=== PATIENT | female | born 1960 | race Caucasian/White ===

== ENCOUNTER 2017-04-21 11:53 | Inpatient (IN) | payer MEDICARE ==
[~2017-04-21] VITALS: Ht 162.6 cm; Wt 81.6 kg
[~2017-04-21 11:53] MED LIST: ACYCLOVIR400 MG PO; AMOXICILLIN500 M1 OR; AMOXICILLIN500 MG OR; AMOXICILLIN500 MG PO; ANAPROX DS550 MG OR; ASPIRIN LOW DOS81 MG PO; ASPIRIN325 MG PO; ATENOLOL25 MG OR; ATENOLOL25 MG PO; ATIVAN0.5 MG PO; ATUSS DS OR; AUGMENTIN875 MG PO; BACTRIM DS1 TAB PO; BENAZEPRIL5 M1 OR; BENAZEPRIL5 M1 PO; CETIRIZ/PSE1 TAB PO; CIPRO500 MG OR; COMBIVENT IN; COMBIVENT RESPIMAT IN; CYMBALTA20 MG PO; CYMBALTA30 MG PO; DARVOCET-N 100100 MG OR; DAYPRO600 MG OR; DICLOFENAC75 MG OR; DIGOXIN0.25 MG PO; DILAUDID4 MG OR; DILAUDID8 MG OR; DILAUDID8 MG PO; DULCOLAX10 MG RE; FENOFIBRATE48 MG PO; FLAGYL500 MG OR; FLEXERIL; FLEXERIL OR; FLEXERIL PO; GABAPENTIN300 M2 PO; GLIPIZIDE10 MG PO; GLUCOPHAGE500 MG OR; GLYBURID MCR3 MG OR; GLYBURID MCR3 MG PO; HYDROMORPHON4 MG OR; HYDROMORPHON8 MG PO; HYDROMORPHONE HC8 MG PO; INDOMETHACIN PO; INVOKANA100 MG PO; ISOSORB DIN30 MG OR; KEFLEX500 MG PO; KLOR-CON M2020 MEQ OR; LANTUS SOLOSTAR SC; LANTUS100 MG/ML SC; LASIX 20 MG20 MG/TAB PO; LEVAQUIN750 MG PO; LEVEMIR FL100 UNIT/M SC; LEVEMIR1000 UNITS SC; LIPITOR20 MG PO; LIPITOR40 MG PO; LIPITOR80 MG OR; LISINOPRIL10 MG PO; LOPRESSOR 550 MG/TAB PO; LOPRESSOR25 MG PO; LORTAB 10 OR; LORTAB 5 OR; LORTAB 7.5 OR; LORTAB5 PO; LYRICA50 MG PO; METFORMIN HCL1000 MG PO; METFORMIN1000 MG PO; METFORMIN500 M1 OR; METFORMIN500 MG PO; METFORMIN850 MG OR; METFORMIN850 MG PO; METOPROL TAR25 MG PO; MICRONASE5 MG PO; NAPROSYN500 MG OR; NEURONTIN300 MG OR; NEXIUM40 M1 OR; NEXIUM40 M1 PO; NEXIUM40 MG PO; NITREK0.4 MG/HR TD; NOVOLIN 70/30 SC; NOVOLOG100 IU/1 M SC; OPANA ER (CRUSH10 MG PO; OPANA10 MG PO; ORPHENADRINE100 MG PO; OXYCONTIN10 MG PO; PAROXETINE20 MG PO; PAXIL; PAXIL30 MG PO; PENICILLN VK500 MG OR; PERIDEX0.12 % MT; PHENTERMINE37.5 M1 OR; PLAVIX75 MG PO; POT CHLORIDE20 ME3 OR; POTASSIUM CHLO10 MEQ PO; PRILOSEC20 MG/CAP PO; PROAIR HFA IN; RANEXA PO; RESVERATROL PO; ROBITUSSIN AC10 ML PO; SIMVASTATIN40 MG PO; SOMA350 MG OR; SOMA350 MG PO; TRAMADOL HCL50 MG PO; TRIAM/HCTZ1 CAP OR; TRICOR145 MG OR; TYLENOL325 MG PO; ULTRAM50 M1 OR; ULTRAM50 M1 PO; ULTRAM50 MG OR; VALIUM5 MG PO; VENTOLIN HFA IN; VERAPAMIL120 M1 OR; VITAMIN C1000 MG PO; XANAX0.25 MG PO; XANAX0.5 MG PO; ZITHROMAX250 MG PO; ZITHROMAX500 MG OR; ZOCOR20 MG PO; ZPAK OR; ZPAK PO; [UNRECOGNIZED DRUG - CODE] OR
[2017-04-21 12:37] VITALS: BP 102/69
[2017-04-21 12:48] LABS: HEMATOCRIT 42.2 % (37.0-47.0); HEMOGLOBIN 14.2 g/dl (12.0-16.0); IMMATURE GRANULOCYTES 0.3 % (0.0-1.0); MEAN CELL VOLUME 83.2 fL CALC (80.0-100.0); MEAN CORPUSCULAR HGB CONC 33.6 g/L CALC (32.0-36.0); NEUT# 4.86 thou/uL (2.00-7.15); RED BLOOD COUNT 5.07 mill/uL (4.20-5.60); RED CELL DISTRI WIDTH 12.9 % (11.5-15.5)
[2017-04-21 13:22] LABS: ANION GAP 14 (6-22 (CALC)); BUN 9 mg/dL (7-17); BUN/CREATININE RATIO 14 (12-20 (CALC)); CALCIUM 9.7 mg/dL (8.4-10.2); CARBON DIOXIDE 31 mmol/l (22-30); CHLORIDE 96 mmol/l (95-108); CREATININE 0.7 mg/dL (0.5-1.0); GFR > 60 ML/MIN (>=60 (CALC)); GFR FOR AFR.AMER. > 60 ML/MIN (>=60 (CALC)); GLUCOSE 179 mg/dL (65-105); POTASSIUM 4.1 mmol/l (3.5-5.1); SODIUM 138 mmol/l (137-146)
[2017-04-21 15:50] VITALS: BP 112/70
[2017-04-21 16:01] LABS: URINE BILIRUBIN - DIPSTICK NEGATIVE (NEGATIVE); URINE BLOOD DIPSTICK NEGATIVE (NEGATIVE); URINE CLARITY CLEAR; URINE COLOR YELLOW; URINE GLUCOSE - DIPSTICK NEGATIVE (NEGATIVE); URINE KETONE NEGATIVE (NEGATIVE); URINE LEUK ESTERASE TRACE (Negative); URINE NITRITE - DIPSTICK NEGATIVE (Negative); URINE PROTEIN - DIPSTICK NEGATIVE (NEG-TRACE); URINE UROBILINOGEN - DIPSTICK 0.2 E.U./dL (0.2)
[2017-04-21 18:45] VITALS: BP 128/79
== END 2017-04-21 21:26 | disposition left against medical advice (07) | DRG 392 ==
LOC: MS2 11:53
PROVIDERS: ADMIT Internal Medicine Geriatric Medicine; ATTEND Internal Medicine Geriatric Medicine
DX: R10.9 Unspecified abdominal pain (principal); E11.42 Type 2 diabetes mellitus with diabetic polyneuropathy; E11.51 Type 2 diabetes mellitus with diabetic peripheral angiopathy without gangrene; E86.0 Dehydration; F19.20 Other psychoactive substance dependence, uncomplicated; E11.65 Type 2 diabetes mellitus with hyperglycemia; I48.91 Unspecified atrial fibrillation; R11.2 Nausea with vomiting, unspecified; R19.7 Diarrhea, unspecified; M47.816 Spondylosis without myelopathy or radiculopathy, lumbar region; J44.9 Chronic obstructive pulmonary disease, unspecified; I25.10 Atherosclerotic heart disease of native coronary artery without angina pectoris; Z95.1 Presence of aortocoronary bypass graft

== ENCOUNTER 2017-08-16 11:09 | Emergency (ER) | payer OTHER, MEDICARE, MEDICAID ==
[~2017-08-16] VITALS: Ht 162.6 cm; Wt 85.0 kg
[2017-08-16] MEDS ORDERED: NEURONTIN300 MG PO (12:03)
[2017-08-16] MEDS ORDERED: EC ASPIRIN325 MG PO (12:04)
[2017-08-16] MEDS ORDERED: NITROSTAT0.4 MG SL (12:05)
[2017-08-16 12:08] LABS: HEMOGLOBIN 14.7 g/dl (12.0-16.0); IMMATURE GRANULOCYTES 0.6 % (0.0-1.0); MEAN CORPUSCULAR HGB 27.7 pG CALC (26.0-32.0); MEAN CORPUSCULAR HGB CONC 33.4 g/L CALC (32.0-36.0); NEUT# 8.46 thou/uL (2.00-7.15); RED BLOOD COUNT 5.3 mill/uL (4.20-5.60); RED CELL DISTRI WIDTH 13.2 % (11.5-15.5)
[2017-08-16 12:32] LABS: ANION GAP 15 (6-22 (CALC)); BUN 11 mg/dL (7-17); BUN/CREATININE RATIO 15 (12-20 (CALC)); CALCIUM 9.7 mg/dL (8.4-10.2); CARBON DIOXIDE 28 mmol/l (22-30); CHLORIDE 104 mmol/l (95-108); CREATININE 0.7 mg/dL (0.5-1.0); GFR > 60 ML/MIN (>=60 (CALC)); GFR FOR AFR.AMER. > 60 ML/MIN (>=60 (CALC)); GLUCOSE 170 mg/dL (65-105); POTASSIUM 4.4 mmol/l (3.5-5.1); SODIUM 143 mmol/l (137-146)
[2017-08-16 17:09] VITALS: BP 110/66
== END 2017-08-16 17:26 | disposition home or self-care (01) | DRG 552 ==
LOC: ED 11:09
PROVIDERS: Family Medicine
DX: S13.161A Dislocation of C5/C6 cervical vertebrae, initial encounter (principal); E11.9 Type 2 diabetes mellitus without complications; S16.1XXA Strain of muscle, fascia and tendon at neck level, initial encounter; R07.89 Other chest pain; G89.29 Other chronic pain; R91.1 Solitary pulmonary nodule; E78.5 Hyperlipidemia, unspecified; I10 Essential (primary) hypertension; M54.9 Dorsalgia, unspecified; I25.10 Atherosclerotic heart disease of native coronary artery without angina pectoris; I25.2 Old myocardial infarction; V43.54XA Car driver injured in collision with van in traffic accident, initial encounter; Z95.1 Presence of aortocoronary bypass graft

== ENCOUNTER 2018-05-19 22:25 | Emergency (ER) | payer MEDICARE, MEDICAID ==
[~2018-05-19] VITALS: Ht 162.6 cm; Wt 84.2 kg
[~2018-05-19 22:25] MED LIST changes: +EC ASPIRIN325 MG PO; +NEURONTIN300 MG PO; +NITROSTAT0.4 MG SL
[2018-05-19 23:28] LABS: HEMOGLOBIN 14.8 g/dl (12.0-16.0); IMMATURE GRANULOCYTES 0.2 % (0.0-5.0); MEAN CELL VOLUME 81.9 fL CALC (80.0-100.0); MEAN CORPUSCULAR HGB 27.6 pG CALC (26.0-32.0); MEAN CORPUSCULAR HGB CONC 33.6 g/L CALC (32.0-36.0); NEUT# 4.05 thou/uL (2.00-7.15); RED BLOOD COUNT 5.37 mill/uL (4.20-5.60); RED CELL DISTRI WIDTH 13.8 % (11.5-15.5)
[2018-05-19 23:29] LABS: URINE BILIRUBIN - DIPSTICK NEGATIVE (NEGATIVE); URINE BLOOD DIPSTICK NEGATIVE (NEGATIVE); URINE COLOR YELLOW; URINE GLUCOSE - DIPSTICK >=1000 mg/dL (NEGATIVE); URINE KETONE NEGATIVE (NEGATIVE); URINE LEUK ESTERASE NEGATIVE (NEGATIVE); URINE NITRITE - DIPSTICK NEGATIVE (Negative); URINE PH 7.5 (4.5-8.0); URINE PROTEIN - DIPSTICK NEGATIVE (NEG-TRACE)
[2018-05-19 23:36] LABS: ALBUMIN 4.1 g/dL (3.2-5.0); ALKALINE PHOSPHATASE 89 u/l (38-126); ANION GAP 15 (6-22 (CALC)); BILIRUBIN, TOTAL 0.4 mg/dL (0.0-1.4); BUN 6 mg/dL (7-17); BUN/CREATININE RATIO 9 (12-20 (CALC)); CARBON DIOXIDE 31 mmol/l (22-30); CHLORIDE 98 mmol/l (95-108); CREATININE 0.7 mg/dL (0.5-1.0); GFR > 60 ML/MIN (>=60 (CALC)); GFR FOR AFR.AMER. > 60 ML/MIN (>=60 (CALC)); POTASSIUM 3.9 mmol/l (3.5-5.1); SGOT/AST 17 u/l (14-36); SGPT/ALT 33 u/l (9-52); SODIUM 140 mmol/l (137-146); TOTAL PROTEIN 7.4 g/dL (6.3-8.2)
[2018-05-19 23:39] LABS: URINE CLARITY CLEAR
[2018-05-19 23:45] LABS: BARBITURATES NEGATIVE (NEGATIVE); COCAINE NEGATIVE (NEGATIVE); METHADONE NEGATIVE (NEGATIVE); OXCYCODONE NEGATIVE (NEGATIVE); TETRAHYDROCANNABIONOL NEGATIVE (NEGATIVE); TRICYLIC ANTIDEPRESSANTS NEGATIVE (NEGATIVE)
[2018-05-20 00:58] VITALS: BP 142/80
== END 2018-05-20 01:00 | disposition short-term general hospital (02) ==
LOC: ED 22:25
PROVIDERS: Emergency Medicine
DX: H57.04 Mydriasis (principal); I10 Essential (primary) hypertension; R51 Headache; E11.9 Type 2 diabetes mellitus without complications; F17.290 Nicotine dependence, other tobacco product, uncomplicated; Z91.14 Patient's other noncompliance with medication regimen; Z95.1 Presence of aortocoronary bypass graft

== ENCOUNTER 2019-02-26 23:23 | Emergency (ER) | payer MEDICARE, MEDICAID ==
[~2019-02-26] VITALS: Ht 162.6 cm; Wt 70.0 kg
[2019-02-26] MEDS ORDERED: ZETIA10 MG PO (23:37)
[2019-02-26] MEDS ORDERED: LYRICA50 MG PO (23:38)
[2019-02-26] MEDS ORDERED: LISINOPRIL5 MG PO (23:38)
[2019-02-27] MEDS ORDERED: AUGMENTIN875TAB PO (00:36)
[2019-02-27 00:51] VITALS: BP 155/87
== END 2019-02-27 01:00 | disposition home or self-care (01) ==
LOC: ED 23:23
DX: T25.231A Burn of second degree of right toe(s) (nail), initial encounter (principal); E11.9 Type 2 diabetes mellitus without complications; F17.290 Nicotine dependence, other tobacco product, uncomplicated; X19.XXXA Contact with other heat and hot substances, initial encounter; Y92.009 Unspecified place in unspecified non-institutional (private) residence as the place of occurrence of the external cause

== ENCOUNTER 2019-03-27 19:34 | Observation (INO) | payer MEDICARE, MEDICAID ==
[~2019-03-27] VITALS: Ht 162.6 cm; Wt 81.0 kg
[~2019-03-27 19:34] MED LIST changes: +AUGMENTIN875TAB PO; +LISINOPRIL5 MG PO; +ZETIA10 MG PO
[2019-03-27 20:03] LABS: HEMATOCRIT 46.8 % (37.0-47.0); HEMOGLOBIN 15.6 g/dl (12.0-16.0); IMMATURE GRANULOCYTES 0.2 % (0.0-5.0); MEAN CELL VOLUME 81.7 fL CALC (80.0-100.0); MEAN CORPUSCULAR HGB 27.2 pG CALC (26.0-32.0); MEAN CORPUSCULAR HGB CONC 33.3 g/L CALC (32.0-36.0); RED BLOOD COUNT 5.73 mill/uL (4.20-5.60)
--- NOTE | 2019-03-27 20:11 | NUR ---
PT ARRIVES TO ROOM, NOW WITH EKG DONE, IV ESTABLISHED, BLOOD DRAWN, SEEN BY EDP, MEDS PROVIDED ORDERED. PT AMBULATORY TO BR.
[2019-03-27] MEDS ORDERED: NOVOLIN 70/30 SC (20:15)
[2019-03-27] MEDS ORDERED: CRESTOR40 MG PO (20:17)
[2019-03-27] MEDS ORDERED: OXYCONTIN10 MG PO (20:18)
[2019-03-27] MEDS ORDERED: TIZANIDINE2 MG PO (20:19)
[2019-03-27 20:21] LABS: URINE BILIRUBIN - DIPSTICK NEGATIVE (NEGATIVE); URINE BLOOD DIPSTICK NEGATIVE (NEGATIVE); URINE COLOR YELLOW; URINE GLUCOSE - DIPSTICK >=1000 mg/dL (NEGATIVE); URINE KETONE NEGATIVE (NEGATIVE); URINE LEUK ESTERASE NEGATIVE (NEGATIVE); URINE NITRITE - DIPSTICK NEGATIVE (Negative); URINE PH 6.5 (4.5-8.0); URINE PROTEIN - DIPSTICK NEGATIVE (NEG-TRACE); URINE SPECIFIC GRAVITY <=1.005
[2019-03-27 20:22] LABS: ALBUMIN 4.3 g/dL (3.2-5.0); ALKALINE PHOSPHATASE 77 u/l (38-126); ANION GAP 17 (6-22 (CALC)); BILIRUBIN, TOTAL 0.7 mg/dL (0.0-1.4); BUN 8 mg/dL (7-17); BUN/CREATININE RATIO 13 (12-20 (CALC)); CARBON DIOXIDE 29 mmol/l (22-30); CHLORIDE 95 mmol/l (95-108); CREATININE 0.6 mg/dL (0.5-1.0); GFR > 60 ML/MIN (>=60 (CALC)); GFR FOR AFR.AMER. > 60 ML/MIN (>=60 (CALC)); LIPASE 95 u/l (23-300); POTASSIUM 3.8 mmol/l (3.5-5.1); SGOT/AST 34 u/l (14-36); SODIUM 138 mmol/l (137-146); TOTAL PROTEIN 7.4 g/dL (6.3-8.2)
[2019-03-27 20:27] LABS: AMYLASE < 30 u/l (30-110)
[2019-03-27 20:27] LABS: BARBITURATES NEGATIVE (NEGATIVE); COCAINE NEGATIVE (NEGATIVE); METHADONE NEGATIVE (NEGATIVE); OXCYCODONE NEGATIVE (NEGATIVE); TETRAHYDROCANNABIONOL NEGATIVE (NEGATIVE); TRICYLIC ANTIDEPRESSANTS NEGATIVE (NEGATIVE)
[2019-03-27 20:34] LABS: MYOGLOBIN 25 ng/mL (0 - 62)
[2019-03-27 21:20] VITALS: BP 162/82
--- NOTE | 2019-03-27 21:20 | NUR ---
PT ARRIVED TO MS UNIT VIA STRETCHER ACCOMPANIED BY ED NURSE. PT APPEARS TO BE IN STABLE CONDITION. PT IS TALKING ON CELL PHONE WHILE BEING ASSISTED TO THE BED. AIDE IN TO OBTAIN V/S, WEIGHT AND ORIENT PT TO ROOM, BED, CALL SYSTEM, LIGHTS AND TV. CALL LIGHT IS NEXT TO PT AND BED IN LOWEST POSITION AT THIS TIME.
--- NOTE | 2019-03-27 21:28 | NUR ---
REPORT CALLED TO JACKSON MUKHERJEE TAKEN TO ROOM 273 WITHOUT INCIDENT.
[2019-03-27 21:45] VITALS: BP 148/87
--- NOTE | 2019-03-27 22:00 | NUR ---
PT IN TO SEE PT, PT C/O HEADACHE. NITRO PATCH IN PLACE AND POC DISCUSSED W/PT. WILL FOLLOW-UP WHEN ORDERS BECOME AVAILABLE.
[2019-03-28] VITALS (7 sets, daily range): BP systolic 99–147; BP diastolic 55–82
--- NOTE | 2019-03-28 00:15 | NUR ---
FUEL OIL TRUCK DRIVER CALLED RESPIRATORY FOR EKG ORDERED BY PHYSICIAN.
--- NOTE | 2019-03-28 00:30 | NUR ---
UPON CHART CHECK, TEAM CDL DRIVER NOTICED ORDER FOR EKG FROM TIME PRIOR TO FLOOR BEING ON THE FLOOR. ED OBTAINED 1X EKG, ORDERS FOR SECOND WERE PLACED FOR FLOOR PRIOR TO PT ARRIVING. TEAM CDL DRIVER REALIZED 2ND EKG HAD NOT BEEN OBSERVED BY RT/NOTIFIED RT AND EKG PERFORMED AT THIS TIME. PT IS SITTING UPRIGHT IN BED WATCHING MOVIE AND WORKING ON COMPUTER.
--- NOTE | 2019-03-28 04:26 | NUR ---
PT C/O PAIN AND ANXIOUSNESS/INABILITY TO SLEEP. PT MEDICATED W/XANAX ORDERS PROVIDE. PT SITTING UPRIGHT IN BED W/COMPUTER IN LAP, LIGHTS ON. PT DENIED COMFORT MEASURES/WARMPACKS. PT LEFT IN BED W/LIGHTS OUT, SHE REPORTS SHE IS GOING TO TRY AND SLEEP A LITTLE.
[2019-03-28 05:05] LABS: IMMATURE GRANULOCYTES 0.3 % (0.0-5.0); MEAN CELL VOLUME 82.6 fL CALC (80.0-100.0); MEAN CORPUSCULAR HGB 27.4 pG CALC (26.0-32.0); MEAN CORPUSCULAR HGB CONC 33.2 g/L CALC (32.0-36.0); NEUT# 4.36 thou/uL (2.00-7.15); RED BLOOD COUNT 4.7 mill/uL (4.20-5.60)
[2019-03-28 05:08] LABS: HEMATOCRIT 38.8 % (37.0-47.0); HEMOGLOBIN 12.9 g/dl (12.0-16.0)
[2019-03-28 05:25] LABS: ALBUMIN 3.5 g/dL (3.2-5.0); ALKALINE PHOSPHATASE 74 u/l (38-126); ANION GAP 11 (6-22 (CALC)); BILIRUBIN, TOTAL 0.5 mg/dL (0.0-1.4); BUN 7 mg/dL (7-17); BUN/CREATININE RATIO 12 (12-20 (CALC)); CALCULATED LDLCHOLESTEROL 73 mg/dL (62-129 (CALC)); CARBON DIOXIDE 28 mmol/l (22-30); CHLORIDE 100 mmol/l (95-108); CREATININE 0.6 mg/dL (0.5-1.0); GFR > 60 ML/MIN (>=60 (CALC)); GFR FOR AFR.AMER. > 60 ML/MIN (>=60 (CALC)); HDL CHOLESTEROL 28 mg/dL (>=40); POTASSIUM 3.5 mmol/l (3.5-5.1); SGOT/AST 24 u/l (14-36); SODIUM 136 mmol/l (137-146); TOTAL PROTEIN 6.1 g/dL (6.3-8.2); TOTAL TRIGLYCERIDES 140 mg/dl (30-149); VLDL CHOLESTROL 28 mg/dl (2-49 (CALC))
[2019-03-28 05:26] LABS: CHOLESTEROL HDL RATIO 4.6 (<4.4 (CALC)); TOTAL CHOLESTEROL 129 mg/dl (0-199)
--- NOTE | 2019-03-28 07:05 | NUR ---
PT REPORT RECIEVED FROM KATIA MUKHERJEE. PT RESTING. NO S/S OF DISTRESS. CALL LIGHT IN REACH. WILL CONTINUE TO MONITOR.
--- NOTE | 2019-03-28 07:58 | NUR ---
PT A/O X3. SPEECH IS CLEAR. RESP EVEN AND UNLABORED. LUNG SOUNDS CLEAR. O2 @2L ON PT. TELE IN PLACE. NONPRODUCTIVE COUGH NOTED. BOWEL SOUNDS ACTIVE X4. STRONG RADIAL AND PEDAL PULSES. #20 LAC D5 1/2 @75. SITE APPEARS HEALTHY. TRACE OF EDEMA TO BILATERAL ANKLES. SKIN INTACT. PT DENIES ANY PAIN OR NEEDS AT THIS TIME. POC DISCUSSED. SAFETY PRECAUTIONS IN PLACE. CALL LIGHT IN REACH. WILL CONTINUE TO MONITOR.
[2019-03-28 09:24] LABS: CHOLESTEROL HDL RATIO 4.9 (<4.4 (CALC))
--- NOTE | 2019-03-28 11:32 | NUR ---
PT RESTING IN BED. MEDICATED W/ OXYCONTIN 10 MG PO. REPOSITONED FOR COMFORT. PT DENIES ANY FURTHER NEEDS. CALL LIGHT IN REACH. WILL CONTINUE TO MONITOR.
--- NOTE | 2019-03-28 16:49 | NUR ---
pt on phone, watching telvision. call light in reach. will continue to monitor.
--- NOTE | 2019-03-28 19:34 | NUR ---
ASSESSMENT COMPLETED; NO DISTRESS NOTED;C/O NAUSEA, NO VOMITING NOTED; MEDICATED WITH ORDERED ZOFRAN; WILL REASSESS. IV SITE PATENT AND ORDERED IVF INFUSING WELL. INSTRUCTED TO CALL FOR ANY NEEDS. CALL LIGHT IS IN REACH. WILL CONTINUE TO MONITOR.
--- NOTE | 2019-03-28 20:47 | NUR ---
LOPRESSOR HELD R/T LOW B/P. PT. ALSO DECLINES SURFAK; HELD. PT. DENIES NEEDS. REPORTS NAUSEA HAS SUBSIDED. ENCOURAGED TO CALL FOR ANY NEEDS. CALL LIGHT IS IN REACH.
--- NOTE | 2019-03-28 23:12 | NUR ---
PT. SITTING UP IN BED WITH NO DISTRESS NOTED; REPORTS 6/10 BACK PAIN, MEDICATED WITH SCHEDULED PAIN MEDICATION; WILL REASSESS. VSS. ENCOURAGED TO CALL FOR ANY NEEDS.
--- NOTE | 2019-03-29 01:48 | NUR ---
RESTING IN BED WITH EYES CLOSED; NO DISTRESS NOTED; RESP. EVEN AND UNLABORED. CALL LIGHT IS IN REACH.
--- NOTE | 2019-03-29 02:30 | NUR ---
PT. REPORTS NECK PAIN 04/07; MEDICATED WITH ORDERED DILAUDID PO AND XANAX TO ASSIST TO REST; PT. REPORTS EARLIER THIS EVENING HAD A SLIGHT EPISODE OF CP, BUT WAS QUICK AND IS RESOLVED NOW; DENIES ANY CP NOW. TELEMETRY IN PLACE; ENCOURAGED TO CALL FOR ANY NEEDS.
[2019-03-29 04:00] VITALS: BP 100/70
[2019-03-29 05:25] LABS: HEMATOCRIT 41.2 % (37.0-47.0); HEMOGLOBIN 13.5 g/dl (12.0-16.0); IMMATURE GRANULOCYTES 0.2 % (0.0-5.0); MEAN CELL VOLUME 83.2 fL CALC (80.0-100.0); MEAN CORPUSCULAR HGB 27.3 pG CALC (26.0-32.0); MEAN CORPUSCULAR HGB CONC 32.8 g/L CALC (32.0-36.0); NEUT# 4.43 thou/uL (2.00-7.15); RED BLOOD COUNT 4.95 mill/uL (4.20-5.60); RED CELL DISTRI WIDTH 13.3 % (11.5-15.5)
[2019-03-29 05:34] LABS: ALBUMIN 3.6 g/dL (3.2-5.0); ALKALINE PHOSPHATASE 60 u/l (38-126); ANION GAP 11 (6-22 (CALC)); BILIRUBIN, TOTAL 0.6 mg/dL (0.0-1.4); BUN 6 mg/dL (7-17); BUN/CREATININE RATIO 9 (12-20 (CALC)); CARBON DIOXIDE 31 mmol/l (22-30); CHLORIDE 102 mmol/l (95-108); CREATININE 0.7 mg/dL (0.5-1.0); GFR > 60 ML/MIN (>=60 (CALC)); GFR FOR AFR.AMER. > 60 ML/MIN (>=60 (CALC)); POTASSIUM 3.9 mmol/l (3.5-5.1); SGOT/AST 33 u/l (14-36); SODIUM 140 mmol/l (137-146); TOTAL PROTEIN 6.6 g/dL (6.3-8.2)
--- NOTE | 2019-03-29 07:30 | NUR ---
RECEIVED PT AWAKE. ASSESSMENT COMPLETE. DENIES ANY COMPLAINTS OF CHEST PAIN OR SHOTNESS OF BREATH AT THIS TIME.
[2019-03-29 08:00] VITALS: BP 117/70
--- NOTE | 2019-03-29 08:20 | NUR ---
DR GALEANA AT BEDSIDE. DISCUSSED DISCHARGE AND FOLLOW UP PLANS IN DETAIL WITH PATIENT AND .
[2019-03-29] MEDS ORDERED: LEVEMIR FL100 UNIT/M SC (08:28)
--- NOTE | 2019-03-29 09:50 | NUR ---
DISCHARGE INSTRUCTIONS DISCUSSED WITH PATIENT. REVIEWED SCHEDULED APPTS WITH GRAZYNA BARROS, AND KERVIN. DISCUSSED STOPPING BY HIS OFFICE TO GET DIET HE INSTRUCTED. PT DENIES ANY QUESTIONS REGARDING FOLLOW UP.
== END 2019-03-29 10:00 | disposition home or self-care (01) ==
LOC: ED 19:34 → ED-I 20:39 → ED 20:54 → MS2 20:55
PROVIDERS: Emergency Medicine; ADMIT Internal Medicine Geriatric Medicine; ATTEND Internal Medicine Geriatric Medicine
DX: R07.9 Chest pain, unspecified (principal); H01.006 Unspecified blepharitis left eye, unspecified eyelid; R10.9 Unspecified abdominal pain; M54.5 Low back pain; G89.29 Other chronic pain; E86.0 Dehydration; E11.65 Type 2 diabetes mellitus with hyperglycemia; I10 Essential (primary) hypertension; I25.10 Atherosclerotic heart disease of native coronary artery without angina pectoris; J44.9 Chronic obstructive pulmonary disease, unspecified; M19.90 Unspecified osteoarthritis, unspecified site; F41.9 Anxiety disorder, unspecified; F17.200 Nicotine dependence, unspecified, uncomplicated; F19.20 Other psychoactive substance dependence, uncomplicated; Z79.4 Long term (current) use of insulin; Z91.19 Patient's noncompliance with other medical treatment and regimen; Z95.1 Presence of aortocoronary bypass graft

== ENCOUNTER 2019-05-23 21:27 | Emergency (ER) | payer MEDICARE, MEDICAID ==
[~2019-05-23] VITALS: Ht 162.6 cm; Wt 80.0 kg
[~2019-05-23 21:27] MED LIST changes: +CRESTOR40 MG PO; +TIZANIDINE2 MG PO
[2019-05-24 00:22] VITALS: BP 111/62
== END 2019-05-24 00:30 | disposition home or self-care (01) ==
LOC: ED 21:27
DX: J06.9 Acute upper respiratory infection, unspecified (principal); E11.9 Type 2 diabetes mellitus without complications; I10 Essential (primary) hypertension; Z79.4 Long term (current) use of insulin

== ENCOUNTER 2019-06-03 22:07 | Observation (INO) | payer MEDICARE, MEDICAID ==
[~2019-06-03] VITALS: Ht 162.6 cm; Wt 81.2 kg
[2019-06-03 22:45] LABS: HEMATOCRIT 43.7 % (37.0-47.0); HEMOGLOBIN 14.4 g/dl (12.0-16.0); IMMATURE GRANULOCYTES 0.3 % (0.0-5.0); MEAN CELL VOLUME 81.8 fL CALC (80.0-100.0); NEUT# 4.67 thou/uL (2.00-7.15); RED BLOOD COUNT 5.34 mill/uL (4.20-5.60); RED CELL DISTRI WIDTH 12.8 % (11.5-15.5)
[2019-06-03 23:00] LABS: ALKALINE PHOSPHATASE 84 u/l (38-126); AMYLASE 49 u/l (30-110); ANION GAP 14 (6-22 (CALC)); BILIRUBIN, TOTAL 0.5 mg/dL (0.0-1.4); BUN 8 mg/dL (7-17); BUN/CREATININE RATIO 10 (12-20 (CALC)); CARBON DIOXIDE 31 mmol/l (22-30); CHLORIDE 96 mmol/l (95-108); CREATININE 0.8 mg/dL (0.5-1.0); GFR > 60 ML/MIN (>=60 (CALC)); GFR FOR AFR.AMER. > 60 ML/MIN (>=60 (CALC)); LIPASE 148 u/l (23-300); POTASSIUM 3.8 mmol/l (3.5-5.1); SGOT/AST 27 u/l (14-36); SODIUM 136 mmol/l (137-146)
[2019-06-03 23:03] LABS: ALBUMIN 4.4 g/dL (3.2-5.0); TOTAL PROTEIN 8.1 g/dL (6.3-8.2)
[2019-06-03 23:12] LABS: MYOGLOBIN 40 ng/mL (0 - 62)
[2019-06-04 01:53] VITALS: BP 155/85
[2019-06-04 07:10] LABS: ALBUMIN 3.6 g/dL (3.2-5.0); ALKALINE PHOSPHATASE 73 u/l (38-126); ANION GAP 12 (6-22 (CALC)); BILIRUBIN, TOTAL 0.4 mg/dL (0.0-1.4); BUN 7 mg/dL (7-17); BUN/CREATININE RATIO 12 (12-20 (CALC)); CARBON DIOXIDE 27 mmol/l (22-30); CHLORIDE 101 mmol/l (95-108); CREATININE 0.6 mg/dL (0.5-1.0); GFR > 60 ML/MIN (>=60 (CALC)); GFR FOR AFR.AMER. > 60 ML/MIN (>=60 (CALC)); POTASSIUM 3.8 mmol/l (3.5-5.1); SGOT/AST 20 u/l (14-36); SODIUM 136 mmol/l (137-146); TOTAL PROTEIN 6.6 g/dL (6.3-8.2)
[2019-06-04 07:14] LABS: CHOLESTEROL HDL RATIO 11.3 (<4.4 (CALC))
[2019-06-04 08:00] VITALS: BP 116/62
[2019-06-04] MEDS ORDERED: CYMBALTA30 MG PO (14:14)
[2019-06-04] MEDS ORDERED: ALBUTEROL108 MCG/AC IN (14:15)
[2019-06-04] MEDS ORDERED: TESSALON PER100 MG PO (14:15)
[2019-06-04 16:24] VITALS: BP 106/59
[2019-06-04 19:11] VITALS: BP 114/69
[2019-06-05] VITALS (7 sets, daily range): BP systolic 90–116; BP diastolic 49–73
[2019-06-05 23:38] LABS: URINE BILIRUBIN - DIPSTICK NEGATIVE (NEGATIVE); URINE BLOOD DIPSTICK NEGATIVE (NEGATIVE); URINE COLOR YELLOW; URINE GLUCOSE - DIPSTICK 100 mg/dL (NEGATIVE); URINE KETONE NEGATIVE (NEGATIVE); URINE LEUK ESTERASE NEGATIVE (NEGATIVE); URINE NITRITE - DIPSTICK NEGATIVE (Negative); URINE PH 5.5 (4.5-8.0); URINE PROTEIN - DIPSTICK NEGATIVE (NEG-TRACE); URINE SPECIFIC GRAVITY 1.015; URINE UROBILINOGEN - DIPSTICK 0.2 E.U./dL (0.2)
[2019-06-06 04:18] VITALS: BP 154/80
[2019-06-06 07:46] LABS: HEMATOCRIT 43.3 % (37.0-47.0); HEMOGLOBIN 13.9 g/dl (12.0-16.0); IMMATURE GRANULOCYTES 0.3 % (0.0-5.0); MEAN CELL VOLUME 84.1 fL CALC (80.0-100.0); MEAN CORPUSCULAR HGB CONC 32.1 g/L CALC (32.0-36.0); NEUT# 4.66 thou/uL (2.00-7.15); RED BLOOD COUNT 5.15 mill/uL (4.20-5.60); RED CELL DISTRI WIDTH 12.8 % (11.5-15.5)
[2019-06-06 07:56] VITALS: BP 143/81
[2019-06-06 08:11] LABS: ALBUMIN 3.5 g/dL (3.2-5.0); ALKALINE PHOSPHATASE 65 u/l (38-126); ANION GAP 11 (6-22 (CALC)); BILIRUBIN, TOTAL 0.5 mg/dL (0.0-1.4); BUN 8 mg/dL (7-17); BUN/CREATININE RATIO 13 (12-20 (CALC)); CARBON DIOXIDE 33 mmol/l (22-30); CHLORIDE 99 mmol/l (95-108); CREATININE 0.6 mg/dL (0.5-1.0); GFR > 60 ML/MIN (>=60 (CALC)); GFR FOR AFR.AMER. > 60 ML/MIN (>=60 (CALC)); POTASSIUM 4.4 mmol/l (3.5-5.1); SGOT/AST 21 u/l (14-36); SODIUM 139 mmol/l (137-146); TOTAL PROTEIN 6.5 g/dL (6.3-8.2)
[2019-06-06 08:46] VITALS: BP 143/81
== END 2019-06-06 10:12 | disposition home or self-care (01) ==
LOC: ED 22:07 → ED-I 23:50 → ED 06-04 00:06 → ICU 06-04 00:07 → MS2 06-04 10:14
PROVIDERS: Emergency Medicine; ADMIT Internal Medicine Geriatric Medicine; ATTEND Internal Medicine Geriatric Medicine
DX: M94.0 Chondrocostal junction syndrome [Tietze] (principal); I10 Essential (primary) hypertension; I25.10 Atherosclerotic heart disease of native coronary artery without angina pectoris; F19.20 Other psychoactive substance dependence, uncomplicated; G89.29 Other chronic pain; M54.5 Low back pain; E11.51 Type 2 diabetes mellitus with diabetic peripheral angiopathy without gangrene; E11.42 Type 2 diabetes mellitus with diabetic polyneuropathy; E11.65 Type 2 diabetes mellitus with hyperglycemia; F41.1 Generalized anxiety disorder; I48.91 Unspecified atrial fibrillation; J44.9 Chronic obstructive pulmonary disease, unspecified; M19.90 Unspecified osteoarthritis, unspecified site; E86.0 Dehydration; R11.2 Nausea with vomiting, unspecified; I25.2 Old myocardial infarction; Z95.1 Presence of aortocoronary bypass graft; Z79.4 Long term (current) use of insulin; Z91.19 Patient's noncompliance with other medical treatment and regimen

== ENCOUNTER 2019-11-15 | Emergency (ER) | payer MEDICARE, MEDICAID ==
[~2019-11-15] MED LIST changes: +ALBUTEROL108 MCG/AC IN; +TESSALON PER100 MG PO
== END 2019-11-16 02:01 | disposition home or self-care (01) ==
DX: M54.6 Pain in thoracic spine (principal); E11.9 Type 2 diabetes mellitus without complications; I10 Essential (primary) hypertension; I25.10 Atherosclerotic heart disease of native coronary artery without angina pectoris; I25.2 Old myocardial infarction; Z95.1 Presence of aortocoronary bypass graft; Z79.4 Long term (current) use of insulin

== ENCOUNTER 2020-08-31 22:04 | Emergency (ER) | payer MEDICARE, MEDICAID ==
[~2020-08-31] VITALS: Ht 162.6 cm; Wt 82.0 kg
[2020-08-31 23:05] LABS: HEMATOCRIT 41.8 % (37.0-47.0); HEMOGLOBIN 13.8 g/dl (12.0-16.0); IMMATURE GRANULOCYTES 0.3 % (0.0-5.0); MEAN CELL VOLUME 80.4 fL CALC (80.0-100.0); MEAN CORPUSCULAR HGB 26.5 pG CALC (26.0-32.0); NEUT# 4.22 thou/uL (2.00-7.15); RED BLOOD COUNT 5.2 mill/uL (4.20-5.60); RED CELL DISTRI WIDTH 13.4 % (11.5-15.5)
[2020-08-31 23:20] LABS: ALBUMIN 3.8 g/dL (3.2-5.0); ALKALINE PHOSPHATASE 51 u/l (38-126); ANION GAP 13 (6-22 (CALC)); BUN 8 mg/dL (7-17); BUN/CREATININE RATIO 11 (12-20 (CALC)); CARBON DIOXIDE 32 mmol/l (22-30); CHLORIDE 93 mmol/l (95-108); CREATININE 0.7 mg/dL (0.5-1.0); GFR > 60 ML/MIN (>=60 (CALC)); GFR FOR AFR.AMER. > 60 ML/MIN (>=60 (CALC)); LIPASE 80 u/l (23-300); POTASSIUM 4.1 mmol/l (3.5-5.1); SODIUM 134 mmol/l (137-146); TOTAL PROTEIN 6.8 g/dL (6.3-8.2)
[2020-08-31 23:21] LABS: AMYLASE < 30 u/l (30-110); BILIRUBIN, TOTAL 0.8 mg/dL (0.0-1.4); SGOT/AST 45 u/l (14-36)
[2020-08-31 23:31] LABS: MYOGLOBIN 35 ng/mL (0 - 62)
[2020-08-31] MEDS ORDERED: PHENERGAN25 MG/TAB PO (23:48)
[2020-09-01 00:17] VITALS: BP 112/62
== END 2020-09-01 00:14 | disposition home or self-care (01) ==
LOC: ED 22:04
PROVIDERS: Family Medicine
DX: U07.1 COVID-19 (principal); R50.9 Fever, unspecified; R11.2 Nausea with vomiting, unspecified; E11.9 Type 2 diabetes mellitus without complications; I10 Essential (primary) hypertension; E78.5 Hyperlipidemia, unspecified; I25.10 Atherosclerotic heart disease of native coronary artery without angina pectoris; I25.2 Old myocardial infarction; Z95.1 Presence of aortocoronary bypass graft

== ENCOUNTER 2020-09-02 00:06 | Inpatient (IN) | payer MEDICARE, MEDICAID ==
[~2020-09-02] VITALS: Ht 162.6 cm; Wt 83.1 kg
[~2020-09-02 00:06] MED LIST changes: +PHENERGAN25 MG/TAB PO
--- NOTE | 2020-09-02 00:11 | NUR ---
PT. TO ROOM 12 WITH C/O BEING DIAGNOISED WITH COVID 19 YESTERDAY AND TODAY FEELING WEAKNESS. PT. PUPILS PINPOINT, RESP. SHALLOW SATTING 88 % ON RA. PT. STATES, " I TOOK MY DILUADID AND PHENERGAN TOGETHER, THEN I WENT TO BED. WHEN I WOKE UP I WAS DIZZY." SKIN WARM AND DRY TO TOUCH, COLOR WNL, RESP. EVEN AND UNLABORED.
--- NOTE | 2020-09-02 00:44 | NUR ---
PATIENTS CELL PHONE PLACED ON COUNTER IN PATIENTS ROOM BY JEIMY, PATIENTS SON WAS ASKED TO LEAVE [facility] AFTER BEING THREATENING AND BELIGERENT WITH REGISTRATION AND SECURITY, YOLA ALVES ON SCENE SPEAKING WITH SON ABOUT HIS BEHAVIOR. PATIENT AT RADIOLOGY AT THIS TIME.
[2020-09-02 00:56] LABS: ALBUMIN 3.4 g/dL (3.2-5.0); ALKALINE PHOSPHATASE 49 u/l (38-126); ANION GAP 15 (6-22 (CALC)); BILIRUBIN, TOTAL 1.1 mg/dL (0.0-1.4); BUN 8 mg/dL (7-17); BUN/CREATININE RATIO 12 (12-20 (CALC)); CARBON DIOXIDE 26 mmol/l (22-30); CHLORIDE 93 mmol/l (95-108); CREATININE 0.7 mg/dL (0.5-1.0); GFR > 60 ML/MIN (>=60 (CALC)); GFR FOR AFR.AMER. > 60 ML/MIN (>=60 (CALC)); MAGNESIUM 1.8 mg/dL (1.6-2.3); POTASSIUM 3.7 mmol/l (3.5-5.1); SGOT/AST 52 u/l (14-36); SODIUM 131 mmol/l (137-146); TOTAL PROTEIN 6.3 g/dL (6.3-8.2)
[2020-09-02 00:58] LABS: ACT PARTIAL THROMBO TIME 32.3 SECONDS (20.0-32.5); INTERNATIONAL NORMALIZED RATIO 1.1 RATIO (0.7-1.3); PROTHROMBIN TIME 10.8 SECONDS (9.0-12.5)
--- NOTE | 2020-09-02 00:59 | NUR ---
RESPIRATORY NOTIFIED OF PENDING ABG
--- NOTE | 2020-09-02 01:02 | NUR ---
PATIENT SLEEPY BUT AROUSABLE, NO C/O PAIN, NO S/S OF IDSTRESS NOTED, RESPIRATIONS EVEN AND UNLABORED, AWAITING RESPIRATORY THERAPY.
[2020-09-02 01:07] LABS: C-REACTIVE PROTEIN 18.2 mg/dL (0-0.9)
[2020-09-02 01:09] LABS: HEMATOCRIT 38.4 % (37.0-47.0); HEMOGLOBIN 12.8 g/dl (12.0-16.0); IMMATURE GRANULOCYTES 0.5 % (0.0-5.0); MEAN CELL VOLUME 80.2 fL CALC (80.0-100.0); MEAN CORPUSCULAR HGB 26.7 pG CALC (26.0-32.0); MEAN CORPUSCULAR HGB CONC 33.3 g/dL CAL (32.0-36.0); NEUT# 6.02 thou/uL (2.00-7.15); RED BLOOD COUNT 4.79 mill/uL (4.20-5.60); RED CELL DISTRI WIDTH 13.4 % (11.5-15.5)
--- NOTE | 2020-09-02 01:33 | NUR ---
PATIENT ASSITED TO BEDSIDE COMMODE TO ATTEMPT TO PROVIDE URINE SAMPLE, PATIENT UNABLE TO PROVIDE SAMPLE.
--- NOTE | 2020-09-02 01:45 | NUR ---
HAND OFF REPORT GIVEN TO LONNY.
[2020-09-02 01:55] VITALS: BP 111/68
--- NOTE | 2020-09-02 01:55 | NUR ---
PT ARRIVED TO MED SURG UNIT VIA STRETCHER ACCOMPANIED BY ED NURSE. PT SELF AMBULATED FROM STRETCHER TO BED W/STANDBY ASSISTANCE ONLY. PT APPEARS TO BE IN STABLE CONDITION. POC DISCUSSED WITH PT, SHE WAS MEDICATED ORDERS PROVIDE AND ASSESSMENT COMPLETED. V/S ASSESSED ALSO AT THIS TIME TO BE STABLE. 88% ON RA, BUT WITH NC3L PT OXYGEN SATURATION LEVELS ARE STABLE @93-95% PT INSTRUCTED TO KEEP OXYGEN ON, VERBALIZED UNDERSTANDING. PT PROVIDED WATER, DENIES ANY OTHER NEEDS. MESSAGE TO RETURN FAMILY/FRIEND PHONE CALL PROVIDED BY STAFF AND GIVEN TO PT, ACKNOWLEDGED AND PHONE USAGE REVIEWED WITH PT. SHE ALSO HAS HER CELLPHONE IN HAND.
[2020-09-02 04:00] VITALS: BP 123/70
--- NOTE | 2020-09-02 04:33 | NUR ---
PT SLEEPING, AWOKE TO OUR VOICES. V/S ASSESSED. PT DENIES ANY OTHER NEEDS AT THIS TIME. CALL LIGHT W/IN REACH.
--- NOTE | 2020-09-02 05:51 | NUR ---
PT SLEEPING, IVPUMP CLEARED. NO S/O DISTRESS NOTED. LIGHTS ARE ON LOW. CALL LIGHT AT SIDE.
[2020-09-02 08:13] VITALS: BP 123/67
--- NOTE | 2020-09-02 08:36 | NUR ---
SHIFT CHANGE REPORT, PT AWAKE LETHARGIC AND ORIENTED, DENIES PAIN, SEVERE DIAPHORETIC AT THIS TIME, BLOOD GLUCOSE MEASURED = 236, STATES SHE HAS NO APPETITE, O2 @ 4L VIA NC IN PLACE, ASSISTED TO BR, SPONGE BATH GIVEN THEN BACK TO RECLINER, CALL GARCIA IN REACH.
[2020-09-02 10:50] VITALS: BP 111/61
--- NOTE | 2020-09-02 12:00 | NUR ---
MEDICAL TEAM ROUNDED AND DISCUSSED PLAN OF CARE, PT REMAINS WEAK AND LETHARGIC, ADVISED TO CALL FOR ASSISTANCE FOR PRP, ALL NEEDS MET AT THIS TIME.
[2020-09-02 15:00] VITALS: BP 140/78
--- NOTE | 2020-09-02 17:30 | NUR ---
PT C/O SEVERE BACK AND NECK PAIN AND STATES SHE TAKES DILAUDID AT HOME, THIS MED IS NOT ORDERED HERE, DR DAVID NOTIFIED VIA PHONE, WROTE ORDERS.
--- NOTE | 2020-09-02 19:30 | NUR ---
NEW ORDER FOR DILAUDID 8MG Q4 HRS PRN, PT STATES SHE ONLY TAKES 4MG QR HRS PRN.
--- NOTE | 2020-09-02 19:41 | NUR ---
SPORTS MEDICINE COORDINATOR OBTAINING V/S, NO S/O DISTRESS NOTED. PT REPORTS PAIN LEVEL IMPROVING WITH MEDICATION PREVIOUSLY PROVIDED BY DAY NURSE. REPORT HAS BEEN RECEIVED FROM DAY NURSE. PT DENIES ANY NEEDS AT THIS TIME. CALL LIGHT LEFT WITHIN REACH AND PT INSTRUCTED TO CALL IF SHE NEEDS TO GET UP OR OTHER NEEDS.
[2020-09-02 20:00] VITALS: BP 144/76
--- NOTE | 2020-09-02 20:07 | NUR ---
PT CALLED TO REQUEST ASSISTANCE TO RESTROOM. ASSISTED PT TO BSC WHERE SHE HAD URINE AND WATERY STOOL OUTPUT LARGE AMOUNT. PT IS WEAK ON AMBULATING, BUT MADE IT TO BSC W/MINIMAL 1X STANDBY ASSISTANCE. BSC LEFT AT BEDSIDE. PT IS NOW ASKING FOR JUICE. I INFORMED PT THAT I COULD BRING THINGS WHEN I COME IN TO MEDICATE AND TO BE SURE AND CALL IF SHE THOUGHT OF SOMETHING ELSE TO ASSIST IN GROUPING CARE. PT APPEARED UPSET AT FIRST STATING "CLEARLY I BOTHERED YOU." I REASSURED HER THAT SHE WAS NOT BOTHERING ME, THIS IS WHY SHE IS IN THE HOSPITAL TO RECEIVE OUR ASSISTANCE AND CARE, BUT THAT WE WERE HAVING TO GROUP CARE ITEMS TOGETHER IN ORDER TO PRESERVE PPE WHEN POSSIBLE. SHE VERBALIZED UNDERSTANDING. I ASKED HER IF SHE THOUGHT SHE WANTED ANYTHING ELSE WHEN I BRING HER MEDICATIONS, SHE ASKED FOR HECTOR CHUNG. WILL PROVIDE ALL REQUESTS WHEN I RETURN.
--- NOTE | 2020-09-02 20:43 | NUR ---
PT MEDICATED AND PROVIDED JUICE AND CRACKERS PER REQUEST. ASSESSMENT COMPLETED. PT DENIES ANY OTHER NEEDS AT THIS TIME.
[2020-09-03] VITALS: BP 124/71
--- NOTE | 2020-09-03 00:07 | NUR ---
OXYGEN SAT LEVELS 86% ON 6LNC. RESP CALLED TO EVALUATE.
--- NOTE | 2020-09-03 00:20 | NUR ---
RESP PLACED PT ON 8L HIGH FLOW WITH OXYGEN SAT LEVELS AT 91% WILL CONTINUE TO MONITOR CLOSELY. PT DENIES FEELING SOB, BUT REPORTS PAIN IN HER CHEST UPON DEEP BREATHING. PT IS ASKING FOR MORE DILAUDID TO BE ADMINISTERED AT THIS TIME, BUT I EXPLAINED TO HER THAT THIS WOULD SUPPRESS HER OXYGEN LEVELS MORE AND IF SHE CAN WAIT WE NEED TO WAIT TO ADMINISTER, SHE VERBALIZED UNDERDSTANDING. WILL MONITOR FOR OXYGEN LEVELS.
[2020-09-03 03:28] VITALS: BP 140/78
--- NOTE | 2020-09-03 03:36 | NUR ---
PT REPORTS ONLY TAKING 4MG OF DILAUDID INSTEAD OF 8MG ORDERS PROVIDE. WILL RETURN 4MG OF DILAUDID TO PHARMACY MED RETURN BIN. PT ASSISTED TO BS WHERE SHE HAD 800CC OF CLEAR YELLOW URINE AND SCANT SOFT STOOL OUTPUT. SELF AMBULATED TO BSC AND BACK TO BED. OXYGEN SAT SUSTAINED @91-92% ON 8LHIGH FLOW NC. PT DENIES FEELING SOB. NO COUGH OBSERVED, DENIES COUGH.
[2020-09-03 06:05] LABS: HEMATOCRIT 38.8 % (37.0-47.0); HEMOGLOBIN 12.6 g/dl (12.0-16.0); IMMATURE GRANULOCYTES 0.5 % (0.0-5.0); MEAN CELL VOLUME 80.8 fL CALC (80.0-100.0); MEAN CORPUSCULAR HGB 26.3 pG CALC (26.0-32.0); MEAN CORPUSCULAR HGB CONC 32.5 g/dL CAL (32.0-36.0); NEUT# 9.7 thou/uL (2.00-7.15); RED BLOOD COUNT 4.8 mill/uL (4.20-5.60); RED CELL DISTRI WIDTH 13.4 % (11.5-15.5)
[2020-09-03 06:19] LABS: ALKALINE PHOSPHATASE 52 u/l (38-126); ANION GAP 10 (6-22 (CALC)); BILIRUBIN, TOTAL 0.5 mg/dL (0.0-1.4); BUN 12 mg/dL (7-17); BUN/CREATININE RATIO 24 (12-20 (CALC)); CARBON DIOXIDE 29 mmol/l (22-30); CHLORIDE 100 mmol/l (95-108); CREATININE 0.5 mg/dL (0.5-1.0); GFR > 60 ML/MIN (>=60 (CALC)); GFR FOR AFR.AMER. > 60 ML/MIN (>=60 (CALC)); POTASSIUM 3.9 mmol/l (3.5-5.1); SGOT/AST 50 u/l (14-36); SODIUM 135 mmol/l (137-146); TOTAL PROTEIN 5.7 g/dL (6.3-8.2)
[2020-09-03 06:33] LABS: C-REACTIVE PROTEIN 14.1 mg/dL (0-0.9)
[2020-09-03 07:54] VITALS: BP 141/84
--- NOTE | 2020-09-03 07:54 | NUR ---
PT SITTING IN BED. A&O X3. NO DISTRESS NOTED. O2 8L HUMIDIFIED NC IN PLACE. CLEAR AND DIMINISHED BREATH SOUNDS HEARD UPON AUSCULTATION. TRACE EDEMA NOTED TO BLE. PT ENCOURAGED TO LAY IN PRONE POSITION. IS DEVICE AT BEDSIDE. ASSESSMENT COMPLETED. DISCUSSED POC. CALL LIGHT IN REACH. CONTINUE TO MONITOR.
[2020-09-03 10:30] VITALS: BP 115/72
--- NOTE | 2020-09-03 10:58 | NUR ---
ASSISTED PT TO RECLINER. NO NEEDS AT THIS TIME. CALL LIGHT IN REACH. CONTINUE TO MONITOR.
[2020-09-03 15:50] VITALS: BP 119/69
--- NOTE | 2020-09-03 17:31 | NUR ---
ASSISTED PT BACK TO BED. NO OTHER NEEDS AT THIS TIME. CALL LIGHT IN REACH. CONTINUE TO MONITOR.
[2020-09-03 18:52] VITALS: BP 140/79
--- NOTE | 2020-09-03 20:51 | NUR ---
PT SITTING IN BED IN LOW FOWLERS POSITION AWAKE LOOKING AT CELLPHONE. SAT LEVELS 86% ON 8L HIGH FLOW NC. PT DEMONSTRATED IS USAGE @1000, REINFORCED 1500 GOAL. PT MEDICATED ORDERS PROVIDE. SHE IS ASKING FOR PAIN MEDICATION, BUT I DISCUSSED HER OXYGEN LEVELS BEING A CONCERN, VERBALIZED UNDERSTANDING. OXYGEN INCREASED TO 9L HIGH FLOW NC, PT RANGING FROM 88-92% AT THIS TIME. I ASKED PT IF SHE COULD LAY IN PRONE POSITION TO HELP OPEN THE LUNGS, SHE STATED THAT THE DAY NURSE SUGGESTED THIS BUT SHE HAS NOT TRIED IT YET. I ASSISTED PT TO GET INTO PRONE POSITION, SHE WAS COOPERATIVE AT THIS TIME. WILL CONTINUE TO MONITOR CLOSELY FOR OXYGEN SAT LEVELS.
--- NOTE | 2020-09-03 21:40 | NUR ---
PT FOUND STILL LAYING IN PRONE POSITION, OXYGEN SAT LEVELS 92-95% ON 9LNC HIGH FLOW. PT MEDICATED FOR PAIN 8/10 ON PAIN SCALE. NO S/O DISTRESS AT THIS TIME. WILL CONTINUE TO MONITOR.
--- NOTE | 2020-09-03 22:05 | NUR ---
PHYSICIAN NOTIFIED OF OXYGEN STATUS FOR PT. NO NEW ORDERS AT THIS TIME. PT IS STABLE @92% ON 9LNC HIGH FLOW AT THIS TIME IN PRONE POSITION.
--- NOTE | 2020-09-03 23:10 | NUR ---
IV PUMP SOUNDING AT THIS TIME. PT IS IN LOW FOWLERS IN BED NOW. NO S/O DISTRESS NOTED.
[2020-09-04] VITALS (29 sets, daily range): BP systolic 84–160; BP diastolic 59–104
--- NOTE | 2020-09-04 02:35 | NUR ---
CALLED RESPIRATORY TO WORK WITH PT, SHE IS 86% ON 9LNC HIGH FLOW, IN LOW FOWLERS. PT ALSO C/O BLEEDING FROM HER NOSE, SMALL AMOUNT OF PINK VISUALIZED ON CLOTH, C/O IRRITATION TO NOSE FROM THE OXYGEN. WILL CONSULT RESP REGARDING, PT IS ASKING FOR A MASK. PT REPORTS NEEDING TO USE BSC, ASSISTED PT TO BSC, OXYGEN SAT DROPPED TO 65% WHEN UP TO BSC, QUICKLY PLACED PT BACK IN THE BED BUT WAS UNABLE TO GET HER OXYGEN LEVELS ABOVE 83% ON THE 9LHCHF. PT HAS BEEN PLACED IN PRONE POSITION NOW AND IS ON 10LNC HIGH FLOW AWAITING RESP RESPONSE. OXYGEN SAT LEVELS ARE HOLDING @89%
--- NOTE | 2020-09-04 03:25 | NUR ---
RESPIRATORY IS IN WITH PT AT THIS TIME. PT LAYING IN PRONE POSITION 88% ON 10L HIGH FLOW NC. RESPIRATORY PLACED PT ON NON-REBREATHER AT THIS TIME, OXYGEN SAT LEVELS ARE 91-92% ON NON-REBREATHER SITTING IN HIGH FOWLERS IN THE BED. V/S ASSESSED AT THIS TIME. HR59, BP 140/82, TEMP 97.6 AND RESP 22. CALL LIGHT IS W/IN HAND AND PT HAS BEEN INSTRUCTED TO CALL FOR ASSISTANCE IF SHE NEEDS TO GET UP FOR ANY REASON OR HAS ANY CONCERNS.
--- NOTE | 2020-09-04 03:53 | NUR ---
OXYGEN SAT LEVELS 95% ON NON-REBREATHER IN UPRIGHT HIGH FOWLERS.
[2020-09-04 05:20] LABS: HEMATOCRIT 38.9 % (37.0-47.0); HEMOGLOBIN 12.8 g/dl (12.0-16.0); IMMATURE GRANULOCYTES 0.8 % (0.0-5.0); MEAN CELL VOLUME 79.9 fL CALC (80.0-100.0); MEAN CORPUSCULAR HGB 26.3 pG CALC (26.0-32.0); MEAN CORPUSCULAR HGB CONC 32.9 g/dL CAL (32.0-36.0); NEUT# 11.91 thou/uL (2.00-7.15); RED BLOOD COUNT 4.87 mill/uL (4.20-5.60); RED CELL DISTRI WIDTH 13.8 % (11.5-15.5)
[2020-09-04 05:37] LABS: ALBUMIN 2.8 g/dL (3.2-5.0); ALKALINE PHOSPHATASE 56 u/l (38-126); ANION GAP 10 (6-22 (CALC)); BILIRUBIN, TOTAL 0.4 mg/dL (0.0-1.4); BUN 9 mg/dL (7-17); BUN/CREATININE RATIO 22 (12-20 (CALC)); CARBON DIOXIDE 28 mmol/l (22-30); CHLORIDE 105 mmol/l (95-108); CREATININE 0.4 mg/dL (0.5-1.0); GFR > 60 ML/MIN (>=60 (CALC)); GFR FOR AFR.AMER. > 60 ML/MIN (>=60 (CALC)); POTASSIUM 3.8 mmol/l (3.5-5.1); SGOT/AST 42 u/l (14-36); SODIUM 139 mmol/l (137-146); TOTAL PROTEIN 5.6 g/dL (6.3-8.2)
--- NOTE | 2020-09-04 08:00 | NUR ---
PENDING TRANSFER TO ICU PER O2 SAT OF 80% ON 10 LPM, UP TO 85% ON 15 LPM. ABG WAS DRAWN, DR GRIFFITH MADE AWARE, STAT TRANSFER. REPORT WAS CALLED TO NAKIA RN, PT TRANSPORTED TO ICU ON 15 LPM NC.
--- NOTE | 2020-09-04 08:15 | NUR ---
CALLED TO PT ROOM BY KATIA FOREMAN TO AVALUATE RESPIRATORY DISTRESS. ORDERS GIVING BY DR. GAMBLE FOR ABG. RESULTS CHARTED 7.48/37.3/44/27.3/77.7% ON 15L HFNC. PT TRANSFERED TO MANAGER SQLKATIA YEE AT BEDSIDE. PT PLACED ON VAPOTHERM 40L 100% TEMP 34 SPO2 92% RR 28.
--- NOTE | 2020-09-04 08:15 | NUR ---
REPORT RECEIVED FROM KELLEN.
--- NOTE | 2020-09-04 08:20 | NUR ---
PT TO ICU BED 8 VIA BED FROM MED SURG. PT IS ALERT AND ORIENTED X3. RESP NOTED TO BE LABORED. PT NOTED TO BE TACHYPNEIC WELL. PT ON 15L HIGH CATA NASAL CANNULA. O2 SATS 70-80S PLACED PT ON NRB 15 L WELL AT THIS TIME. LUNGS NOTED TO BE DIMINISHED THROUGHOUT. DR GRIFFITH AT BEDSIDE AT THIS TIME. DISCUSSED PLAN OF CARE WITH PATIENT. PATIENT VERBALIZED UNDERSTANDING. ORIENTED PT TO ROOM AND UNIT. RT AT BEDSIDE AND PLACED PT ON VAPOTHERM. CALL LIGHT IN REACH. WILL CONTINUE TO MONTIOR.
--- NOTE | 2020-09-04 08:25 | NUR ---
PT note Patient may beenfit from PT intervention for proning and pulmonary tioilet if medical agrees
--- NOTE | 2020-09-04 11:45 | NUR ---
CARMEN PLACED USING STERILE TECHNIQUES. IMMEADIATE RETURN OF URINE NOTED. O2 SATS LOW 80S. LASIX RECENTLY GIVEN. WILL MONITOR CLOSELY. SPOKE WITH Dayna PEARCE APRN ABOUT SATS. IF NO IMPROVEMENT POST LASIX WILL PLACE PATIENT ON BIPAP. PT AWARE. CALL LIGHT IN REACH. WILL CONTINEU TO [facility]
--- NOTE | 2020-09-04 12:16 | NUR ---
PT NOTED TO HAVE O2 SATS AT 85%. 1000CC OF URINE NOTED IN CARMEN BAG. RR 25-37 AT REST. RT AT BEDSIDE TO PLACE PATIENT ON BIPAP AT THIS TIME. WILL CONTINUE TO MONTIOR CLOSELY.
--- NOTE | 2020-09-04 13:03 | NUR ---
PT RESTING IN BED WITH EYES CLOSED. RESP ARE EVEN AND UNLABORED. NO DISTRESS NOTED. PT REMAINS ON BIPAP. CALL LIGHT IN REACH. WILL CONTINUE TO MONITOR.
--- NOTE | 2020-09-04 14:00 | NUR ---
PT RESTING IN BED WITH EYES CLOSED. RESP ARE EVEN AND UNLABORED ON BIPAP. NO DISTRESS NOTED. CALL LIGHT IN REACH. WILL CONTINUE TO MONTIOR.
--- NOTE | 2020-09-04 16:00 | NUR ---
PT RESTING IN BED WITH EYES CLOSED. RESP ARE EVEN AND UNLABORED WITH NO DISTRESS ON BIPAP. CALL LIGHT IN REACH. WILL CONTINUE TO MONITOR CLOSELY.
--- NOTE | 2020-09-04 18:02 | NUR ---
PT RESTING IN BED WITH EYES CLOSED ON BIPAP AT THIS TIME. WILL SAVE DINNER TRAY FOR LATER IF PATIENT IS ABLE TO TOLERATE BEING OFF BIPAP. CALL LIGHT IN REACH. WILL CONTINUE TO MONITOR.
--- NOTE | 2020-09-04 20:30 | NUR ---
PT RESTING IN BED, NO SIGNS OF DISTRESS NOTED, PT ON HER LAPTOP, ON BIPAP SPO2 97%. DISCUSSED POC, RESP EVEN AND UNLABORED. PT ALERT AND ORIENTED X3, PT STATES SHE WOULD LIKE TO EAT DINNER, TRAY PROVIDED. RT CALLED TO BEDSIDE TO PLACE PT ON VAPOTHERM WHILE SHE EATS. ASSESSMENT COMPLETED, CALL LIGHT IN REACH,CONTINUE TO MONITOR.
--- NOTE | 2020-09-04 21:26 | NUR ---
PT ATE DINNER, REQUESTING BREAK FROM BIPAP. PT SATS 92%. CALL LIGHT IN REACH,CONTINUE TO MONITOR.
--- NOTE | 2020-09-04 22:27 | NUR ---
PT RESTING IN BED CONTINUES WITH VAPOTHERM, PT MEDICATED FOR PAIN, CALL LIGHT IN REACH,CONTINUE TO MONITOR.
[2020-09-05] VITALS (18 sets, daily range): BP systolic 75–159; BP diastolic 44–79
--- NOTE | 2020-09-05 | NUR ---
PT RESTING IN BED WITH EYES CLOSED, NO SIGNS OF DISTRESS NOTED, RESP EVEN AND UNLABORED. CALL LIGHT IN REACH,CONTINUE TO MONITOR.
--- NOTE | 2020-09-05 02:00 | NUR ---
PT RESTING IN BED WITH EYES CLOSED, NO SIGNS OF DISTRESS NOTED, RESP EVEN AND UNLABORED. CALL LIGHT IN REACH,CONTINUE TO MONITOR.
--- NOTE | 2020-09-05 04:00 | NUR ---
LABS DRAWN THIS AM, NO SIGNS OF DISTRESS NOTED, RESP EVEN AND UNLABORED, CALL LIGHT IN REACH,CONTINUE TO MONITOR.
[2020-09-05 05:15] LABS: HEMATOCRIT 40.2 % (37.0-47.0); HEMOGLOBIN 13.2 g/dl (12.0-16.0); IMMATURE GRANULOCYTES 0.5 % (0.0-5.0); MEAN CELL VOLUME 80.1 fL CALC (80.0-100.0); MEAN CORPUSCULAR HGB 26.3 pG CALC (26.0-32.0); MEAN CORPUSCULAR HGB CONC 32.8 g/dL CAL (32.0-36.0); NEUT# 11.13 thou/uL (2.00-7.15); RED BLOOD COUNT 5.02 mill/uL (4.20-5.60); RED CELL DISTRI WIDTH 13.9 % (11.5-15.5)
--- NOTE | 2020-09-05 06:10 | NUR ---
PT RESTING IN BED, NO SIGNS OF DISTRESS NOTED, RESP EVEN AND UNLABORED. CALL LIGHT IN REACH,CONTINUE TO MONITOR.
[2020-09-05 07:19] LABS: ALBUMIN 2.7 g/dL (3.2-5.0); ALKALINE PHOSPHATASE 67 u/l (38-126); ANION GAP 10 (6-22 (CALC)); BILIRUBIN, TOTAL 0.8 mg/dL (0.0-1.4); BUN 8 mg/dL (7-17); BUN/CREATININE RATIO 25 (12-20 (CALC)); C-REACTIVE PROTEIN > 9.0 mg/dL (0-0.9); CARBON DIOXIDE 29 mmol/l (22-30); CHLORIDE 104 mmol/l (95-108); CREATININE 0.3 mg/dL (0.5-1.0); GFR > 60 ML/MIN (>=60 (CALC)); GFR FOR AFR.AMER. > 60 ML/MIN (>=60 (CALC)); POTASSIUM 3.9 mmol/l (3.5-5.1); SGOT/AST 52 u/l (14-36); SODIUM 139 mmol/l (137-146); TOTAL PROTEIN 5.7 g/dL (6.3-8.2)
--- NOTE | 2020-09-05 07:34 | NUR ---
PATIENT WAS DRILL PRESS HAND LIGHT, REQUESTED ICED WATER. COMPLAINED OF NAUSEA, ZOFRAN SUBLINGUAL PROVIDED, SITS NEAR 45 DEGREES. IS SOB AND TACHYPNEIC, SHE IS ON VAPOTHERM 40 L/MIN, 100%, 33 DEGREES CELSIUS. O2 SAT 80'S. NURSE ASSESSMENT PERFORMED. RAC 20 G INTACT, NS AT 50 ML/HR. SET ASIDE BREAKFAST, SHE DOES NOT WANT TO EAT RIGHT NOW. WAS ENCOURAGED TO LAY PRONE AFTER HER NAUSEA SUBSIDES. TEMP 96.6 DEGREES F. CALL LIGHT WITHIN REACH.
--- NOTE | 2020-09-05 08:07 | NUR ---
PAIN MEDICATION GIVEN FOR COMPLAINTS OF BACK PAIN. PATIENT ALSO ASSISTED TO LAY PRONE, O2 SATS WERE 79%-83%. O2 SATS 88%-90% LAYING PRONE, SETTINGS UNCHANGED ON VAPOTHERM. VENTOLIN INHALER GIVEN WELL.
--- NOTE | 2020-09-05 08:31 | NUR ---
RUDDY CHRIS AND DR GRIFFITH AT BEDSIDE. ORDERS FOR LASIX 40 MG IV X1 AND STOP IV FLUIDS.
--- NOTE | 2020-09-05 08:37 | NUR ---
LASIX IV 40 MG X1 NOW AND IV FLUIDS ORDERS TO CHANGE TO KVO. ORDERS SENT TO PHARMACY.
--- NOTE | 2020-09-05 09:13 | NUR ---
LASIX IV GIVEN, ZOFRAN IV GIVEN WELL FOR COMPLAINTS OF NAUSEA. PATIENT ASSITED WITH REPOSITIONING, CONTINUES TO LAY PRONE, WHEN PRONE O2 92%-95%, PATIENT IS NOT IN ANY RESPIRATORY DISTRESS. REPORTS PAIN HAS LOWERED AND SHE IS DROWSY RIGHT NOW, RESTS WITH HER EYES CLOSED. HAS NOT ATEN HER BREAKFAST AT THIS TIME. CALL LIGHT WITHIN REACH.
--- NOTE | 2020-09-05 10:00 | NUR ---
PATIENT CAUSTIC ROOM ATTENDANT LIGHT, REQUESTED TO BE SIT UP FROM LAYING PRONE, PATIENT REPORTS SHE GOT "CRAMPED UP." PATIENT WAS HOLLERING FROM PAIN. WAS RESTLESS. REQUESTED WATER, PROVIDED. RT WAS CALLED DUE TO PATIENT DESATED FROM 60%-77% ON VAPO THERM, 40 L/MIN, 100%. PATIENT WAS ALSO SHAKING, SHE COMPLAINED OF BEING COLD, TEMPERATURE WAS CHECKED 98.4 DEGREES F. BLOOD SUGAR WAS CHECKED 107 MG/DL. WARM BLANKETS PROVIDED. PATIENT WAS ABLE TO SWALLOW HER MEDICATIONS. WAS DIRECTED BY RT TO SIP SLOWLY TO PREVENT ASPIRATION. 1015: PATIENT WAS PLACED ON BIPAP BY RT, PATIENT UNDERSTANDS AND AGREES. 1025: O2 SAT 93%. RESPIRATIONS 12 RPM. WILL CONTINUE TO MONITOR.
--- NOTE | 2020-09-05 10:28 | NUR ---
CALLED TO ROOM BY RN. PT SPO2 85% ON VAPOTHERM. PT RETURNED TO BIPAP. ORDERED SETTINGS. RR 33 SPO2 91%. PT RESTING IN BED.
--- NOTE | 2020-09-05 11:09 | NUR ---
IV AZITHROMYCIN INFUSING NOW. PATIENT IN NO ACUTE DISTRESS, RESTS WITH EYES CLOSED. BIPAP ON. O2 SAT 96%, 16 RPM, BP WNL, SR ON TLEMETRY, HR 70 BPM. CALL LIGHT WITHIN REACH.
--- NOTE | 2020-09-05 11:23 | NUR ---
PATIENT'S DAUGHTER CALLED HERE TO SPEAK TO PATIENT, PATIENT NOT ABLE TO SPEAK AT THIS TIME DUE TO BIPAP. I WILL NOTIFY PATIENT DAUGHTER CALLED.
--- NOTE | 2020-09-05 11:33 | NUR ---
DAUGHTER IN LAW GAURI CALLED HERE FOR UPDATES, SHE PROVIDED PATIENT'S PASSCODE, ALL UPDATES GIVEN.
--- NOTE | 2020-09-05 11:53 | NUR ---
BIPAP MASK TAKEN OFF FOR REQUESTS OF SIP OF WATER, PROVIDED, PATIENT DESATED TO 88%. NO BACK ON BIPAP, NO ACUTE DISTRESS SHOWN. LEFT ARM IS EDEMETOUS, WAS ELEVATED WITH PILLOW AND BLOOD PRESSURE CUFF CHANGED TO RFA, BP TAKEN AND WNL. PATIENT LAYS WITH HOB 45 DEGREES. IS AWAKE, IS ABLE TO TEXT ON THE PHONE. CALL LIGHT WITHIN REACH.
--- NOTE | 2020-09-05 13:15 | NUR ---
PATIENT REPORTS SHE WANTS TO TRY TO EAT, RT NOTIFIED, AND DIETARY CALLED TO BRING LUNCH TRAY.
--- NOTE | 2020-09-05 13:38 | NUR ---
PATIENT SITS GREATER THAN 45 DEGREES, RT PLACED PATIENT ON VAPO-THERM 40 L/MIN, 100%, O2 SATS SHE IS EATING NOW ARE 94%. ENCORAGED PURSED LIP BREATHING WHEN SHE BECOMES SOB, ALSO ENCOURAGED INCENTIVE SPIROMETER THROUGH OUT THE DAY AND IF SHE IS ABLE TO. PATIENT STATES, "I FEEL ALOT BETTER." AFEBRILE. WILL CONTINUE TO MONITOR.
--- NOTE | 2020-09-05 13:48 | NUR ---
PLACED PT ON VAPOTHERM FOR MEALS. PT TOLERATING WELL. RN AT BEDSIDE. SPO2 92%
--- NOTE | 2020-09-05 14:24 | NUR ---
REMLDESEVIR IV INFUSING NOW. PATIENT'S BP IS 80'S SYSTOLIC, WILL CNTINUE TO MONITOR. VS MONITOR SET AT EVERY 15 MINUTES. PATIENT OFFERS NO COMPLAINTS OR NEEDS AT THIS TIME. PATIENT SITS UP GREATER THAN 45 DEGREES, DENIES SOB, O2 SAT IS GREATER THAN 95%. CALL LIGHT WITHIN REACH.
--- NOTE | 2020-09-05 14:43 | NUR ---
PATIENT SPEAKING ON THE PHONE, O2 SAT 91%.
--- NOTE | 2020-09-05 15:14 | NUR ---
PATIENT LAYS HOB 30 DEGREES AND WOULD LIKE TO TAKE A NAP. O2 SAT 93% WITH VAPO THERM AT 40 L/MIN, 100%. NO SOB NOTED, NO ACUTE RESPIRATORY DISTRESS NOTED. WILL CONTINUE TO MONITOR
--- NOTE | 2020-09-05 18:10 | NUR ---
PATIENT LAYS WITH HOB AT 30 DEGREES, RESTS WITH EYES CLOSED. DOES AWAKEN WITH VERBAL STIMULI. NO ACUTE RESPIRATORY DISTRESS NOTED. O2 SAT RANGES 90%-92%. HAS NOT ATEN HER DINNER. CALL LIGHT WITHIN REACH.
--- NOTE | 2020-09-05 19:12 | NUR ---
RECEIVED PT WITH EYES CLOSED, PT ON VAPOTHERM. SA02 92% NO DISTRESS NOTED.
--- NOTE | 2020-09-05 21:37 | NUR ---
GAURI, PT DAUGHTER CALLED, UPDATE GIVEN.
--- NOTE | 2020-09-05 22:00 | NUR ---
PT SITTING UP WITH COMPUTER OPEN, DROWSY AT THIS TIME. SAO2 92% ON VAPO THERMAL.
[2020-09-06] VITALS (18 sets, daily range): BP systolic 95–175; BP diastolic 59–85
--- NOTE | 2020-09-06 | NUR ---
PT WITH EYES CLOSED, NO DISTRESS NOTED. PT ON VAPO THERMAL AT 40L. SA02 FLUCUATES 87-92% CALL GARCIA IN REACH.
--- NOTE | 2020-09-06 02:00 | NUR ---
PT WITH EYES CLOSED, NO DISTRESS NOTED. REMAINS ON VAPO THERMAL 40L. CALL GARCIA IN REACH.
--- NOTE | 2020-09-06 02:52 | NUR ---
PT SAO2 85%, ENTERED ROOM, PT AAOX4, PT DENIED SOB. SA02 INCREASED TO 93% NO RESP DISTRESS NOTED. CALL GARCIA IN REACH.
--- NOTE | 2020-09-06 04:00 | NUR ---
PT OPENS EYES WHEN ENTERING ROOM. FOLLOWS COMMANDS TAKES DEEP BREATHS. SA02 INCREASES TO 94% CALL GARCIA IN REACH.
--- NOTE | 2020-09-06 05:31 | NUR ---
LAB AT BEDSIDE.
[2020-09-06 05:59] LABS: HEMATOCRIT 38.4 % (37.0-47.0); HEMOGLOBIN 12.6 g/dl (12.0-16.0); MEAN CELL VOLUME 80.8 fL CALC (80.0-100.0); MEAN CORPUSCULAR HGB 26.5 pG CALC (26.0-32.0); MEAN CORPUSCULAR HGB CONC 32.8 g/dL CAL (32.0-36.0); RED BLOOD COUNT 4.75 mill/uL (4.20-5.60); RED CELL DISTRI WIDTH 13.9 % (11.5-15.5)
--- NOTE | 2020-09-06 06:00 | NUR ---
PT WITH EYES CLOSED, RESPONDS TO VERBAL STIMULI. ENCOURAGED PT TO TAKE DEEP BREATHS. CALL GARCIA IN REACH.
[2020-09-06 06:14] LABS: BUN 10 mg/dL (7-17); BUN/CREATININE RATIO 21 (12-20 (CALC)); CHLORIDE 98 mmol/l (95-108); CREATININE 0.5 mg/dL (0.5-1.0); GFR > 60 ML/MIN (>=60 (CALC)); GFR FOR AFR.AMER. > 60 ML/MIN (>=60 (CALC)); POTASSIUM 4.1 mmol/l (3.5-5.1); SODIUM 138 mmol/l (137-146)
[2020-09-06 06:16] LABS: ANION GAP 9 (6-22 (CALC)); CARBON DIOXIDE 35 mmol/l (22-30); MAGNESIUM 2.3 mg/dL (1.6-2.3)
--- NOTE | 2020-09-06 06:55 | NUR ---
PATIENT IS DROWSY, REPORTS SHE IS TIRED. ORIENTED X4. NURSE ASSESSMENT PERFORMED. SOB NOTED, O2 SATS IN 80'S. ON VAPOTHERM 40 L/MIN, 100 %, 35 DEGREES CELCIUS. ENCOURAGED PURSED LIP BREATHING TECHNIQUE. RAC 20 G IV INTACT, NS AT 10 ML/HR. SR ON TELEMETRY, HR 70'S. CARMEN CATHETER INTACT, YELLOW/CLEAR URINE NOTED. ACCUCHECK 212 MG/DL. COMPLAINS OF PAIN ON HER BACK, REQUESTS PAIN MED. POC DISCUSSED. CALL LIGHT WITHIN REACH.
--- NOTE | 2020-09-06 07:13 | NUR ---
PATIENT GIVEN PAIN MEDICATION PER HER REQUEST, SHE IS SOB THIS MORNING, NOTIFIED RT, RT WAS IN ROOM TO ASSESS, WILL KEEP HER ON VAPOTHERM WITH SEETINGS AT 40 L/MIN AT 100%. I DID HAVE THE PATIENT PULL HERSELF UP HIGH SHE COULD AND HOB GREATER THAN 45 DEGREES, O2 SAT RANGES 80%-90%. ENCOURAGED PURSED LIP BREATHING. CALL LIGHT WITHIN REACH.
--- NOTE | 2020-09-06 07:38 | NUR ---
RT NOTIFIED PATIENT'S O2 SATS ARE 70'S TO LOW 80'S.
--- NOTE | 2020-09-06 07:41 | NUR ---
PATIENT PLACED ON BIPAP, O2 SAT NOW 92%. RT IN ROOM ADJUSTING BIPAP.
--- NOTE | 2020-09-06 07:47 | NUR ---
PT'S O2 SATS DROPPED TO 75% ON VAPOTHERM 40L @ 100%. PLACED BACK ON BIPAP.
--- NOTE | 2020-09-06 08:27 | NUR ---
DR GRIFFITH AND RUDDY BROWNE IN ROOM WITH PATIENT.
--- NOTE | 2020-09-06 08:28 | NUR ---
DR GRIFFITH ORDERED TO PLACE HER ON BIPAP AT BEDTIME, IF SHE WOULD LIKE TO EAT SHE CAN BE PLACED ON VAPOTHERM. CAN BE GIVEN LASIX IV IF SHE HAS TROUBLE BREATHING, PATIENT DOES HAVE RALES.
--- NOTE | 2020-09-06 09:19 | NUR ---
BIPAP MASK TAKEN OFF TO PROVIDE MEDICATIONS. NO DIFFICULTY SWALLOWING NOTED. NASAL SPRAY PROVIDED WELL. PATIENT DID DESAT TO 77% WHILE DRINKING WATER AND TAKING MEDICATIONS. BIPAP BACK ON, PATIENT REPORTS SHE IS TIRED, WANTS TO SLEEP, LIGHTS TUNED OFF.
--- NOTE | 2020-09-06 11:13 | NUR ---
PATIENT RESTS WITH EYES CLOSED, AWAKENS EASILY WHEN SPOKEN TO. BLOOD SUGAR CHECKED, WNL. AZITHROMYCIN IV INFUSING NOW.
--- NOTE | 2020-09-06 11:56 | NUR ---
JU (DAUGHTER IN LAW) CALLED HERE FOR UPDATES, SHE WAS ABLE TO PROVIDE CODE. UPDATES GIVEN.
--- NOTE | 2020-09-06 12:03 | NUR ---
PATIENT AGREES TO EAT LUNCH, PATIENT PULLS HERSELF UP. BIPAP TAKEN OFF, PLACED ON VAPO-THERM SETTINGS UNCHANGED. SOB NOTED. O2 SATS 77% WHILE DRINKING WATER AND EATING. WILL CONTINUE TO MONITOR.
--- NOTE | 2020-09-06 12:05 | NUR ---
CALLED RT AND SPOKE TO ELIS TO NOTIFY PATIENT IS OFF OF BIPAP AND ON VAPO-THERM.
--- NOTE | 2020-09-06 12:12 | NUR ---
PATIENT DESATED TO 50'S WHILE OFF THE BIPAP AND ON THE VAPOTHERM, SHE WAS SOB, RESPIRATIONS 20'S, SHE COMPLAINS OF BACK PAIN, I OFFERED HER PAIN MEDICATION, SHE WOULD NOT LIKE TO HAVE IT AT THIS TIME. I ALSO OFFERED HER XANAX, SHE REPORTS IT MAKES HER SLEEPY. WILL CONTINUE TO MONITOR. ON BIPAP O2 SAT 92%-93%.
--- NOTE | 2020-09-06 12:39 | NUR ---
DAUGHTER JAVIER CALLED FOR UPDATES, UODATES GIVEN. DAUGHTER IN LAW GAURI CALLED AGAIN CONCERNED ABOUT PATIENT TEXTED HER SON ABOUT DOCTOR TALKED TO PATIENT ABOUT BEING PLACED ON THE VENTILATOR. NOTIFIED HER, PATIENT IS TOLERATING BIPAP, O2 SATS CAN GO UP TO 96%.
--- NOTE | 2020-09-06 12:51 | NUR ---
PATIENT REQUESTS TO BE TAKEN OFF OF BIPAP TO BE ABLE TO EAT HER LUNCH. PATIENT STATES, "I THINK I WAS JUST SLEEPY." PATIENT LAYS WITH HOB GREATER THAN 45 DEGREES, IS ON VAPO THERM, 40 L/MIN, 100%, 35 DEGREES CELCIUS. O2 SAT 91%-95%, I ALSO ADMINISTERED LASIX IV PRN FOR LABORED BREATHING. WILL CONTINUE TO MONITOR.
--- NOTE | 2020-09-06 13:16 | NUR ---
BIPAP STANDBY. PLACED ON VAPOTHERM ON 40L @ 100%.
--- NOTE | 2020-09-06 14:20 | NUR ---
REMDESEVIR INFUSING NOW. PATIENT ON VAPOTHERM, SETTINGS UNCHANGED, PATIENT O2 SAT 88%-96%. PATIENT WAS EXPLAINED WE ARE NOT INTUBATING HER, WE ARE PREVENTING THAT. PATIENT WAS CONCERNED THAT DOCTOR ASKED HER IF IT WAS NECESSARY TO BE INUBATE WOULD SHE CONSENT. PATIENT CALMER AFTER EXPLAINING. PATIENT IS NOW FACE TIMING WITH A FAMILY MEMBER.
--- NOTE | 2020-09-06 15:35 | NUR ---
CARMEN BAG EMPTIED. PAIN MEDICATION PROVIDED. PLACED A PILLOW UNDER PATIENT'S BUTTOCKS PER REQUESTS FOR COMPLIANTS OF BUTTCOKS FEELING SORE. PATIENT DESAST WITH EXERTION TO 79% AND ENCOURAGED PURSED LIP BREATHING, O2 SATS 84%-92% NOW. ALSO ENCOURAGED TO SIT ON RECLINER, APTIENT REFUSES AT THIS TIME.
--- NOTE | 2020-09-06 16:11 | NUR ---
rt in room to place patient on bipap. patient's o2 sats sustaining 82%-85%. on bipap now, 94%-96%.
--- NOTE | 2020-09-06 16:13 | NUR ---
VAPOTHERM STANDBY. PLACED BACK ON BIPAP DUE TO 80% O2 SAT.
--- NOTE | 2020-09-06 17:17 | NUR ---
PATIENT RESTS WITH EYES CLOSED. ON BIPAP. AWAKENS EASILY WITH VERBAL STIMULI, BS CHECKED, 2 UNITS INSULIN PROVIDED. AFEBRILE. NO COMPLAINTS OR ACUTE DISTRESS SHOWN. CALL LIGHT WITHIN REACH. O2 SAT 91%.
--- NOTE | 2020-09-06 17:41 | NUR ---
PATIENT'S DAUGHTER IN LAW, GAURI CALLED HERE FOR UPDATES, PROVIDED CODE. UPDATES GIVEN.
--- NOTE | 2020-09-06 18:20 | NUR ---
PATIENT RESTS WITH EYES CLOSED. ON BIPAP. NO ACUTE DISTRESS SHOWN. CALL LIGHT WITHIN REACH.
--- NOTE | 2020-09-06 19:50 | NUR ---
awake. nad. bipap conts. sitting in high fowlers position. spoke @ length about prone position. pt refuses @ present. surveillance monitor shows sinus rhythm hr 66. #20 rac ns infusing @ 10cchr. landeros cath in place. urine cloudy yellow. fall & air/contact precautions cont. requested bipap off & vapotherm on so "i can eat." rt notified. pt lasted few minutes then sao2 75%. bipap resumed per rt. sao2 increased to 93%.
--- NOTE | 2020-09-06 22:00 | NUR ---
eyes closed. bipap cont. nad. defence force member other ranks shows sinus rhythm hr 64.
[2020-09-07] VITALS (20 sets, daily range): BP systolic 130–184; BP diastolic 64–94
--- NOTE | 2020-09-07 00:01 | NUR ---
bipap cont. nad. compliance monitor shows sinus rhythm hr 64.
--- NOTE | 2020-09-07 02:00 | NUR ---
resting quietly. resps even & unlabored. nad. landeros draining well.
--- NOTE | 2020-09-07 04:00 | NUR ---
eyes closed. remains in fowlers position. has not proned this shift. bipap conts.
--- NOTE | 2020-09-07 04:30 | NUR ---
requested bipap off & vapotherm on. request denied.
--- NOTE | 2020-09-07 06:00 | NUR ---
eyes closed. no distress. bipap conts.
--- NOTE | 2020-09-07 07:44 | NUR ---
PLACED PT BACK ON BIPAP PER PT SPO2 ON VAPOTHERM DECREASED TO 81%.
--- NOTE | 2020-09-07 11:16 | NUR ---
PT SEEN AWAKE, ALERT, ORIENTED X 3, BIPAP IN PLACE. LUNGS CLEAR. PT WAS REMOVED FROM BIPAP FOR BREAKFAST, BUT IMMEDIATELY DESATTED INTO THE LOW 80s, REPLACED BIPAP. PT RESTS IN THE BED, NO SIGN OF DISTRESS. FAMILY MEMBER UPDATED WHEN THEY CALLED.
--- NOTE | 2020-09-07 13:07 | NUR ---
PT CONTINUES AT REST IN THE BED, NO DISTRESS. PT REMAINS ON BIPAP.
--- NOTE | 2020-09-07 16:27 | NUR ---
PT CONTINUES TO REST IN THE BED WITH BIPAP IN PLACE, NO SIGNIFICANT CHANGE IN STATUS. NO COMPLAINTS, NO DISTRESS.
--- NOTE | 2020-09-07 17:58 | NUR ---
PT CONTINUES ON BIPAP BEFORE, NO CHANGE IN STATUS.
--- NOTE | 2020-09-07 18:24 | NUR ---
FAMILY MEMBER UPDATED. LEFT ARM SEEN SWOLLEN, PRESUMABLY FROM STEROIDS THERE IS NO BAND ON THAT ARM.
--- NOTE | 2020-09-07 19:55 | NUR ---
awake. denies acute distress. bipap cont. pt sitting in high fowlers position. instructed pt about prone position but refuses @ present. cafeteria monitor shows sinus rhythm hr 78. #22 rac ns infusing @ 10cchr. sips of po fluids given. landeros cath in place. urine clear yellow. fall & air/contact precautions cont.
--- NOTE | 2020-09-07 20:50 | NUR ---
xanax 0.5mg po per request for sleep.
--- NOTE | 2020-09-07 20:50 | NUR ---
bp 170/93. hydralazine 10mg ivp given.
--- NOTE | 2020-09-07 22:00 | NUR ---
eyes closed. remains in high fowlers position. telephone supervisor shows sinus rhythm hr 82
[2020-09-08] VITALS (24 sets, daily range): BP systolic 98–169; BP diastolic 59–94
--- NOTE | 2020-09-08 00:01 | NUR ---
eyes closed. bipap cont. nad. monitoring and evaluation advisor shows sinus rhythm hr 74.
--- NOTE | 2020-09-08 02:00 | NUR ---
resting quietly. resps even & unlabored. nad. landeros draining well.
--- NOTE | 2020-09-08 04:00 | NUR ---
eyes closed. nad. bipap cont. rn cardiac cath shows sinus rhythm hr 70.
--- NOTE | 2020-09-08 05:06 | NUR ---
lab here. blood drawn.
[2020-09-08 06:10] LABS: HEMATOCRIT 37.8 % (37.0-47.0); HEMOGLOBIN 12.3 g/dl (12.0-16.0); IMMATURE GRANULOCYTES 0.9 % (0.0-5.0); MEAN CELL VOLUME 81.3 fL CALC (80.0-100.0); MEAN CORPUSCULAR HGB 26.5 pG CALC (26.0-32.0); MEAN CORPUSCULAR HGB CONC 32.5 g/dL CAL (32.0-36.0); NEUT# 9.97 thou/uL (2.00-7.15); RED BLOOD COUNT 4.65 mill/uL (4.20-5.60); RED CELL DISTRI WIDTH 13.9 % (11.5-15.5)
[2020-09-08 06:28] LABS: ALBUMIN 2.5 g/dL (3.2-5.0); ANION GAP 8 (6-22 (CALC)); BILIRUBIN, TOTAL 0.6 mg/dL (0.0-1.4); BUN 14 mg/dL (7-17); BUN/CREATININE RATIO 30 (12-20 (CALC)); CARBON DIOXIDE 39 mmol/l (22-30); CHLORIDE 95 mmol/l (95-108); CREATININE 0.5 mg/dL (0.5-1.0); GFR > 60 ML/MIN (>=60 (CALC)); GFR FOR AFR.AMER. > 60 ML/MIN (>=60 (CALC)); POTASSIUM 3.9 mmol/l (3.5-5.1); SGOT/AST 63 u/l (14-36); SODIUM 139 mmol/l (137-146); TOTAL PROTEIN 5.4 g/dL (6.3-8.2)
[2020-09-08 06:37] LABS: ALKALINE PHOSPHATASE 135 u/l (38-126)
[2020-09-08 07:19] LABS: C-REACTIVE PROTEIN 20.5 mg/dL (0-0.9)
--- NOTE | 2020-09-08 07:50 | NUR ---
PATIENT LAYS WITH HOB AT 30 DEGREES, SLEEPS BUT AWAKENS EASILY WHEN SPOKEN TO, FOLLOWS DIRECTIONS, WAS ABLE TO PULL HERSELF UP, HOB ELEVATED TO 45 DEGREES, O2 SATS NOW AT 94%-95% AT THIS TIME. MASK WAS ALSO ADJUSTED. NURSE ASSESSMENT PERFORMED. RAC IV INTACT, NS AT 10 ML/HR. CARMEN CATHETER INTACT, URINE YELLOW/CLEAR. RESPIRATORY RATE 20-24. NO COMPLAINTS OR NEEDS AT THIS TIME. SR ON TELEMETRY, AFEBRILE, BP 162 SYSTOLIC. BP CUFF CHANGED TO LFA, R-ARM EDEMETOUS. CALL LIGHT WITHIN REACH. WILL CONTINUE TO MONITOR.
--- NOTE | 2020-09-08 07:58 | NUR ---
PATIENT LAYS HER HOB 30 DEGREES, O2 SAT DROPS TO 85%. HOB ELEVATED TO 45 DEGREES, O2 SAT NOW 90%-92%. PATIENT WAS OFFERED PAIN MEDICATION, SHE ACCEPTS, WILL PROVIDE.
--- NOTE | 2020-09-08 09:32 | NUR ---
PATIENT ABLE TO SWALLOW AM MEDICATIONS WELL HER PAIN MEDICATION WITHOUT DIFFICULTY. SHE DOES DESAT TO 70% WHILE DRINKING WATER, SHE BECOMES SOB. SHE WAS ABLE TO USE NASAL SPRAY. O2 SAT NOW IS 95% ON BIPAP.
--- NOTE | 2020-09-08 10:21 | NUR ---
PATIENT GIVEN IV HYDRALAZINE FOR BP 174/90 MMHG. I OFFERED PATIENT TO SIT ON RECLINER, SHE HAS REFUSED, STATES, "MAYBE LATER, I'M SLEEPY." HOB 45 DEGREES, O2 SAT 95% ON BIPAP.
--- NOTE | 2020-09-08 11:31 | NUR ---
AZITHROMYCIN ANTIBIOTIC INFUSING NOW, 1 UNIT OF INSULIN GIVEN FOR BS 17 MLG/DL. PATIENT IS DROWSY. NO ACUTE RESPIRATORY DISTRESS NOTED. ON BIPAP, O2 SAT 90%-94%. NO NEEDS OR COMPLAINTS AT THIS TIME.
--- NOTE | 2020-09-08 12:50 | NUR ---
CEFTRIAXONE ANTIBIOTIC INFUSING NOW. PATIENT IS AWAKE, DROWSY. NO ACUTE DISTRESS SHOWN. NO COMPLAINTS OR NEEDS AT THIS TIME. CALL LIGHT JUDSON MARTIN.
--- NOTE | 2020-09-08 12:56 | NUR ---
PATIENT'S DAUGHTER IN LAW COLBYJENN CALLED HERE FOR UPDATES, PROVIDED CODE, UPDATES GIVEN.
--- NOTE | 2020-09-08 14:45 | NUR ---
REMDESEVIR INFUSING NOW, PATIENT AWAKENS EASILY WHEN SPOKEN TO. PATIENT WAS ENCOURAGED TO GET WASHED UP AND TO BEDSIDE CHAIR IF SHE IS ABLE, PATIENT ACCEPTS.
--- NOTE | 2020-09-08 15:59 | NUR ---
PATIENT WAS WASHED UP, LINENS CHANGED. SAT UP TO THE SIDE OF THE BED TO FINISH WASHING UP. TRANSFERRED SAFELY TO THE RECLINER, SHE DOES HAVE GENERALIZED WEAKNESS, SHE DOES ADMIT TO SOB WITH EXERTION. SHE WAS ABLE TO DRINK WATER, O2 SAT DROPPED TO 84%. SHE AGREES TO SIT IN RECLINER, O2 SATS SITTING ARE 96% ON BIPAP. PATIENT WAS ALSO ABLE TO PARTICIPATE TO WASH HERSELF UP. CALL LIGHT WITHIN REACH. BP WNL. SR ON TELEMETRY.
--- NOTE | 2020-09-08 18:03 | NUR ---
PATIENT CONTINUES TO SIT ON RECLINER. ON BIPAP, O2 SATS REMAIN GREATER THAN 95%. NO ACUTE DISTRESS SHOWN. CALL LIGHT WITHIN REACH.
--- NOTE | 2020-09-08 19:31 | NUR ---
awake. using cell phone. bipap conts. denies distress. metal or wood blocker shows sinus rhythm hr 64. #22 rac ns infusing @ 20cchr. sips po fluids given. landeros cath in place. urine clear yellow. fall & air/contact precautions cont.
--- NOTE | 2020-09-08 21:30 | NUR ---
using laptop. xanax 0.5mg & dilaudid 4mg po given per request for anxiety & pain.
[2020-09-09] VITALS (22 sets, daily range): BP systolic 100–183; BP diastolic 70–102
--- NOTE | 2020-09-09 00:01 | NUR ---
eyes closed. no distress. school bus monitor shows sinus rhythm hr 68.
--- NOTE | 2020-09-09 02:00 | NUR ---
resting quietly. bipap cont. nad.
--- NOTE | 2020-09-09 04:00 | NUR ---
eyes closed. nad. media monitor shows sinus rhythm 72.
--- NOTE | 2020-09-09 06:00 | NUR ---
bipap cont. nad. monitor and storage bin tender shows sinus rhythm hr 70.
--- NOTE | 2020-09-09 08:07 | NUR ---
PT IS SEEN ALERT AND ORIENTED X 3, DROWSY BUT EASILY WAKENED. LUNGS WITH SCATTERED CRACKLES, BIPAP IN PLACE, SATS CONTINUE 88-91%. ABDOMEN SOFT, NONTENDER, NO BM SINCE 09/03 BUT NOT UNCOMFORTABLE AND IS NOT EATING. SKIN INTACT. PALPABLE PEDAL PULSES, NO EDEMA. BS 145 THIS MORNING, NO COVERAGE NEEDED.
--- NOTE | 2020-09-09 08:50 | NUR ---
PT REMOVED FROM BIPAP LONG ENOUGH TO PROVIDE MORNING MEDS, SEEN TO DROP FROM 91% DOWN TO 74%. BIPAP REPLACED AFTER MEDS SWALLOWED. PT SEEN BY DR HENDRIX THIS MORNING.
--- NOTE | 2020-09-09 14:21 | NUR ---
PT REMAINS BEFORE, BIPAP IN PLACE, RESTING IN THE BED WITH EYES CLOSED. SATS CONTINUE TO BE 88-91%. NO EVIDENCE OF DISTRESS, NO CALL LIGHTS ON.
--- NOTE | 2020-09-09 16:08 | NUR ---
PT REMAINS BEFORE, AT REST IN THE BED WITHOUT CHANGE IN STATUS. RESP EVEN, UNLABORED WITH BIPAP, SATS 89-91%.
--- NOTE | 2020-09-09 19:21 | NUR ---
PT WITH BI-PAP ON, SA02 90%. PT OPENS EYES AND RESPONDS APPROPRIATELY WITH VERBAL STIMULI. NO RESP DISTRESS NOTED. CALL GARCIA IN REACH.
--- NOTE | 2020-09-09 22:00 | NUR ---
SPOKE WITH DAUGHTER GAURI, UPDATE PROVIDED.
--- NOTE | 2020-09-09 22:01 | NUR ---
B/P 183/102 APRESOLINE 10MG GIVEN PER MAR.
[2020-09-10] VITALS (15 sets, daily range): BP systolic 99–164; BP diastolic 58–102
--- NOTE | 2020-09-10 | NUR ---
PT REMAINS ON BI-PAP. RESPONDS TO VERBAL STIMULI WHEN ENTERING ROOM. NO DISTRESS NOTED. CALL GARCIA IN REACH.
--- NOTE | 2020-09-10 00:45 | NUR ---
PT PULLED OFF BIPAP, SA02 DOWN TO 79% REAPPLIED MASK, ENCOURAGED TO TAKE DEEP BREATHS, SA02 92%
--- NOTE | 2020-09-10 02:00 | NUR ---
PT WITH EYES CLOSED, NO DISTRESS NOTED. CALL GARCIA IN REACH.
--- NOTE | 2020-09-10 04:15 | NUR ---
LAB AT BEDSIDE.
--- NOTE | 2020-09-10 04:21 | NUR ---
PT ON BI-PAP, RESPONDS TO VERBAL STIMULI. CALL GARCIA IN REACH.
[2020-09-10 05:11] LABS: HEMATOCRIT 40.8 % (37.0-47.0); IMMATURE GRANULOCYTES 1.1 % (0.0-5.0); MEAN CELL VOLUME 81.8 fL CALC (80.0-100.0); MEAN CORPUSCULAR HGB 26.1 pG CALC (26.0-32.0); MEAN CORPUSCULAR HGB CONC 31.9 g/dL CAL (32.0-36.0); NEUT# 13.98 thou/uL (2.00-7.15); RED BLOOD COUNT 4.99 mill/uL (4.20-5.60)
[2020-09-10 06:01] LABS: ALBUMIN 2.5 g/dL (3.2-5.0); ALKALINE PHOSPHATASE 189 u/l (38-126); ANION GAP 9 (6-22 (CALC)); BILIRUBIN, TOTAL 0.6 mg/dL (0.0-1.4); BUN 16 mg/dL (7-17); BUN/CREATININE RATIO 39 (12-20 (CALC)); CARBON DIOXIDE 36 mmol/l (22-30); CHLORIDE 99 mmol/l (95-108); CREATININE 0.4 mg/dL (0.5-1.0); GFR > 60 ML/MIN (>=60 (CALC)); GFR FOR AFR.AMER. > 60 ML/MIN (>=60 (CALC)); POTASSIUM 3.9 mmol/l (3.5-5.1); SGOT/AST 82 u/l (14-36); SODIUM 140 mmol/l (137-146); TOTAL PROTEIN 5.7 g/dL (6.3-8.2)
--- NOTE | 2020-09-10 07:00 | NUR ---
PT REPORT RECEIVED, PT LAYING ON BACK IN 30%HOB ELEVATED. PT ON BIPAP AND APPEARS TO BE FIGHTING AGAINST IT. STATES JUST WANTS IT OFF, SATS ARE STABLE AT 93-94%, ADVISED PT OF NEED TO LEAVE ON MASK AND WE WILL TRY AND PLACE HER BACK ON VAPOTHERM A LITTLE LATER.
--- NOTE | 2020-09-10 08:04 | NUR ---
BIPAP STANDBY. PLACED ON VAPOTHERM.
--- NOTE | 2020-09-10 08:18 | NUR ---
O2 SAT DROPPED TO 78%. PLACED BACK ON BIPAP.
--- NOTE | 2020-09-10 09:40 | NUR ---
PT PLACED BACK ON BIPAP, SATS ARE 93 %, SLEEPING AT THIS TIME. VITAL SIGNS STABLE
--- NOTE | 2020-09-10 12:33 | NUR ---
TRIED TAKING PT OFF OF BIPAP AGAIN AND PLACED ON VAPOTHERM, PT ONLY ABLE TO TOLERATE IT FOR APPROX 15 MIN BEFORE SATS BEGAN TO DROP DOWN IN TO 70'S. PT ABLE TO DRINK SOME WATER.
--- NOTE | 2020-09-10 13:42 | NUR ---
BIPAP STANDBY. PT TOOK OFF AND IS CURRENTLY REFUSING. PLACED ON VAPOTHERM.
--- NOTE | 2020-09-10 14:14 | NUR ---
PT STATES SHE CANT KEEP MASK ON, PULLING IT OFF, RESP NOTIFIED, AND PT PLACED BACK ON VAPOTHERM, SPOKE TO PT ABOUT IF SATS BEGIN TO DROP DOES SHE WANT TO HAVE A TUBE DOWN THROAT AND BE PLACED ON VENTILATOR, PT STATES NOT NOW, ADVISED WE NEED TO PUT HER BACK ON BIPAP IF VAPTHERM DOES NOT KEEP HER OXYGEN LEVEL UP. SHE STATES SHE WANTS TO STAY ON THE VAPOTHERM AT THIS TIME NO MATTER WHAT.
--- NOTE | 2020-09-10 14:49 | NUR ---
PTS SATS ARE 78%, ASKED IF SHE WANTS THE BIPAP PLACED BACK ON AND PT STATES DOESNT WANT IT ON
--- NOTE | 2020-09-10 15:15 | NUR ---
PT STATES SHE WANTS THE MASK BACK ON NOW, RESP TECH HERE FOR REGIONAL MANAGER TO MASK, PT JUST ASKED IF WHEN SHE COULDNT STAND IT ANY LONGER HAVING MASK ON , COULD SHE SWITCH OUT TO VAPOTHERM FOR A BREAK, I INFORMED HER LONG HER SATS AND VITAL SIGNS HELD UP WITHOUT COMPROMISING HER WE CAN GIVE IT A TRY. WILL PASS IT ON TO RESP AND SPRAY DRY OPERATOR NURSES.
--- NOTE | 2020-09-10 15:16 | NUR ---
O2 SATURATION DROPPED TO 70%. PT AGREED TO GO BACK ON BIPAP.
--- NOTE | 2020-09-10 17:33 | NUR ---
PT RESTING QUIETLY AT THIS TIME, SATS 83% ON BIPAP.
--- NOTE | 2020-09-10 20:00 | NUR ---
PT WITH EYES CLOSED, RESPONDS TO VERBAL STIMULI, FOLLOWS COMMANDS. ENCOURAGED PT TO TAKE DEEP BREATHS. CALL GARCIA IN PLACE.
--- NOTE | 2020-09-10 20:08 | NUR ---
SPOKE TO DAUGHTER GAURI, UPDATE PROVIDED.
--- NOTE | 2020-09-10 20:21 | NUR ---
RESP AT BEDSIDE.
--- NOTE | 2020-09-10 22:00 | NUR ---
PT ON BI-PAP, RESPONDS TO VERBAL STIMULI. CALL GARCIA IN REACH.
[2020-09-11] VITALS (13 sets, daily range): BP systolic 11–163; BP diastolic 55–87
--- NOTE | 2020-09-11 | NUR ---
PT REMAINS ON BI-PAP. RESPONDS TO VERBAL STIMULI. ENCOURAGED TO TAKE DEEP BREATHS. CALL GARCIA IN REACH.
--- NOTE | 2020-09-11 00:39 | NUR ---
RESP AT BEDSIDE.
--- NOTE | 2020-09-11 01:10 | NUR ---
PT ANXIOUS, PULLING AT MASK. MEDICATED PER NOV.
--- NOTE | 2020-09-11 01:35 | NUR ---
BI-PAP ALARMING, RESP TECH AT BEDSIDE.
--- NOTE | 2020-09-11 02:00 | NUR ---
PT REPOSITIONED, SA02 93%, RESPONDS TO VERBAL STIMULI. CALL GARCIA IN REACH.
--- NOTE | 2020-09-11 04:00 | NUR ---
PT ON BI-PAP, RESPONDS TO VERBAL STIMULI. REMAINS DROWSY. CALL GARCIA IN REACH.
--- NOTE | 2020-09-11 06:16 | NUR ---
PT WITH BI-PAP ON, SA02 93% PT RESPONDS TO VERBAL STIMULI. CALL GARCIA IN REACH.
--- NOTE | 2020-09-11 07:15 | NUR ---
CALLED TO PT ROOM BY RN TO ASSESS PT. CHANGED PT MASK TO A SMALLER SIZE. PT TOLERATING WELL AT THIS TIME. RR 23 SPO2 91%
--- NOTE | 2020-09-11 07:49 | NUR ---
PATIENT IS DROWSY, ABLE TO PULL HERSELF UP, DOES NOT STAY AWAKE. BLOOD SUGAR 71 MG/DL. ATTEMPTED TO GIVE ORANGE JUICE WITH SUGAR ADDED, WAS NOT ABLE TO, DESATS TO 72% WHEN OFF OF BIPAP AND ATTEMPTS TO DRINK JUICE, ALSO IS DROWSY. WHEN ON BIPAP SHE WILL GO UP TO 94%. NURSE ASSESSMENT PERFORMED. CARMEN CATHETER PRESENT, DRAINS NICHOLAS/CLOUDY. LAC 20 G IV INTACT. WILL CONTINUE TO MONITOR.
--- NOTE | 2020-09-11 08:56 | NUR ---
STAT ABG PLACED PER DR HENDRIX.
--- NOTE | 2020-09-11 09:09 | NUR ---
RT IN ROOM TO DO ABG, ALSO NOTIFIED RUDDY PEARCE, PATIENT WAS GIVEN ATIVAN IV LAST NIGHT DUE TO SHE WAS PULLING BIPAP MASK OFF.
--- NOTE | 2020-09-11 10:06 | NUR ---
ATTEMPTED TO PLACE DENTURES IN MOUTH AND PROVIDE BY MOUTH MEDICATIONS TO PATIENT, SHE DOES NOT STAY AWAKE ENOUGH TO TRY TO DRINK HER MEDICATIONS OR ASSIST TO PLACE HER DENTURES IN. WHEN I REMOVED THE BIPAP MASK OFF SHE DOES DESAT TO 78% SPO2, PROVIDED WET MOUTH SWABS TO MOISTURIZE HER MOUTH SINCE IT IS DRY. ENCORAGE TO TAKE DEEP BREATHS AND SHE DOES NOT HAVE ENERGY TO TAKE DEEP BREATHS. WILL CONTINUE TO MONITOR.
--- NOTE | 2020-09-11 10:31 | NUR ---
EKG SHOWN TO RUDDY PEARCE.
--- NOTE | 2020-09-11 10:57 | NUR ---
[facility] CALLED TO NOTIFY ORDER FOR ECHO, IT WILL BE DONE TOMORROW AT 0700 PER STEFFI.
--- NOTE | 2020-09-11 11:29 | NUR ---
AZITHROMYCIN INFUSING NOW, PATIENT CONTINUES TO BE DROWSY, DOES AAWAKEN WITH VERBAL STIMULI. HAS NO COMPLAINTS OR NEEDS AT THIS TIME.
--- NOTE | 2020-09-11 13:35 | NUR ---
PATIENT SAFELY TRANSFERRED BACK IN BED WITH HOB 30 DEGREES, SHE COMPLAINED OF FEELING "DIZZY," WHILE SITTING. COMPLAINS OF BP CUFF DISTURBING HER R-WRIST IV, IV WAS FLUSHED AND IS INTACT WELL RETURNS BLOOD. CALL LIGHT WITHIN REACH.
--- NOTE | 2020-09-11 17:11 | NUR ---
PATIENT IS DROWSY, REPORTS SHE "CAN'T BREATHE." PATIENT PULLED HERSELF UP, HOB IN HIGH SEMI-BOLAÑOS'S. RESPIRATION RATE 24.
--- NOTE | 2020-09-11 17:34 | NUR ---
DR HENDRIX NOTIFIED THIS EVENING'S BLOOD SUGAR AND ALSO HOW SHE NEEDED DEXTROSE 105 250 ML THIS MORNING FOR LOW BLOOD SUGAR. NEW ORDERS RECEIVED.
--- NOTE | 2020-09-11 17:42 | NUR ---
PATIENT'S DAUGHTER GAURI CALLED HERE FOR UPDATES, SHE PROVIDED CODE. UPDATES GIVEN.
--- NOTE | 2020-09-11 17:49 | NUR ---
UPDATED DR HENDRIX ON ICU BED 8, NEW VERBAL ORDERS RECEIVED.
--- NOTE | 2020-09-11 20:15 | NUR ---
awakens easily. bipap cont. ekg monitor tech shows sinus rhythm pacs pvcs hr 96. #20 lac d5ns infusing @ 50cchr. landeros cath in place. urine cloudy dheeraj. fall & air/contact precautions cont. general condition appears weaker than before.
--- NOTE | 2020-09-11 22:00 | NUR ---
bipap cont. hob remains elevated. reserves clerk shows sinus rhythm pacs pvcs hr 92. uop has increased greatly since lasix was given.
[2020-09-12] VITALS (22 sets, daily range): BP systolic 85–159; BP diastolic 62–82
--- NOTE | 2020-09-12 00:01 | NUR ---
eyes closed. hob remains elevated. bipap conts. athletic monitor shows sinus rhythm pacs pvcs hr 92.
--- NOTE | 2020-09-12 02:00 | NUR ---
resting quietly. hob remains elevated. residential monitor shows sinus rhythm hr 94.
--- NOTE | 2020-09-12 04:00 | NUR ---
eyes closed. bipap conts. landeros draining well.
--- NOTE | 2020-09-12 05:20 | NUR ---
xray here. pcxr obtained.
--- NOTE | 2020-09-12 05:50 | NUR ---
lab here. blood drawn.
[2020-09-12 06:34] LABS: HEMOGLOBIN 12.6 g/dl (12.0-16.0); MEAN CELL VOLUME 83.2 fL CALC (80.0-100.0); MEAN CORPUSCULAR HGB 26.2 pG CALC (26.0-32.0); MEAN CORPUSCULAR HGB CONC 31.5 g/dL CAL (32.0-36.0); NEUT# 17.23 thou/uL (2.00-7.15); RED BLOOD COUNT 4.81 mill/uL (4.20-5.60); RED CELL DISTRI WIDTH 14.2 % (11.5-15.5)
[2020-09-12 07:01] LABS: ALBUMIN 2.3 g/dL (3.2-5.0); ALKALINE PHOSPHATASE 166 u/l (38-126); ANION GAP 7 (6-22 (CALC)); BILIRUBIN, TOTAL 0.8 mg/dL (0.0-1.4); BUN 16 mg/dL (7-17); BUN/CREATININE RATIO 39 (12-20 (CALC)); CARBON DIOXIDE 37 mmol/l (22-30); CHLORIDE 99 mmol/l (95-108); CREATININE 0.4 mg/dL (0.5-1.0); GFR > 60 ML/MIN (>=60 (CALC)); GFR FOR AFR.AMER. > 60 ML/MIN (>=60 (CALC)); POTASSIUM 3.4 mmol/l (3.5-5.1); SGOT/AST 84 u/l (14-36); SODIUM 140 mmol/l (137-146); TOTAL PROTEIN 5.5 g/dL (6.3-8.2)
[2020-09-12 07:30] LABS: C-REACTIVE PROTEIN > 27.0 mg/dL (0-0.9)
--- NOTE | 2020-09-12 08:00 | NUR ---
1 unit of insulin given. lip moisturizer applied to lips, was able to take a sip of water, provided mouth swab.
--- NOTE | 2020-09-12 09:00 | NUR ---
PATIENT WAS TAKEN OFF OF BIPAP AND PLACED ON NON-REBREATHER AT 100%, 40 L. RT AT BEDSIDE. PATIENT DID SLOWLY DESAT TO 70%, RT INSTRUCTED HER TO TAKE SLOW DEEP BREATHES. PATIENT WAS ABLE TO DRINK AN ORNAGE JUICE, AND 3 BITES OF GRITS, SUPERVISED AND ASSISTED AT ALL TIMES. SHE WAS ABLE TO TALK TO HER DAUGHTER IN LAW JAVIER FOR A MOMENT. WAS PLACED BACK ON BIPAP. SITS IN RECLINER,TURNS TV ON, CHANGES CHANNELS. WILL CONTINUE TO MONITOR.
--- NOTE | 2020-09-12 09:38 | NUR ---
PT PLACED ON VAPOTHERM FOR APPROX 30 MINUTES TO DRINK AND EAT. PT SITTING IN CHAIR AT BEDSIDE. OXYGEN RANGED FROM 78-90 DURING THIS TIME. PT RETURNED TO CPAP MODE OF 13. TOLERATING WELL AT THIS TIME. SPO2 91% KATIA HIDALGO AT BEDSIDE.
--- NOTE | 2020-09-12 09:40 | NUR ---
SPO2 NOW 91%-92%.
--- NOTE | 2020-09-12 10:00 | NUR ---
PATIENT ABLE TO SWALLOW MEDICATIONS. WARM BLANKET PROVIDED. BIPAP BACK ON.
--- NOTE | 2020-09-12 12:04 | NUR ---
2 UNITS OF INSULIN GIVEN PER BLOOD SUGAR. PATIENT SONTINUES TO SIT IN RECLINER, SLEEPS, AWAKENS EASILY WITH VERBAL STIMULI.
--- NOTE | 2020-09-12 12:42 | NUR ---
PATIENT'S DAUGHTER IN LAW GAURI CALLED HERE FOR UPDATES, UPDATES GIVEN.
--- NOTE | 2020-09-12 13:19 | NUR ---
PATIENT PLACED BACK IN BED PER REQUEST, SAFELY TRANSFERRED X2 ASSIST, SHE DOES HAVE GENERALIZED WEAKNESS PRESENT. REQUESTED DRINK OF WATER, IMMEDIATELY DESATED WITH BIPAP MASK OFF. PLACED BACK ON, O2 SAT 90%.
--- NOTE | 2020-09-12 13:24 | NUR ---
PATIENT CONTINUES TO SIT ON BSC, REQUESTS MORE TIME, CALL LIGHT WITHIN REACH.
--- NOTE | 2020-09-12 15:20 | NUR ---
RT IN ROOM TO OBTAIN ABG LEVEL.
--- NOTE | 2020-09-12 15:35 | NUR ---
RT IN ROOM, WILL PLACE PATIENT ON VAPOTHERM. CALLED DIETARY TO SEND A TRAY TO TRY TO FEED PATIENT.
--- NOTE | 2020-09-12 15:35 | NUR ---
PLACED PT ON VAPOTHERM FOR DINNER. PT TOLLERATING WELL AT THIS TIME. KATIA SERRANO IN ROOM. WILL MONITOR.
--- NOTE | 2020-09-12 15:39 | NUR ---
PATIENT ON VAPOTHERM AT 100%, 40 L/MIN. SPO2 84%-86%. TAKES SIPS OF WATER.
--- NOTE | 2020-09-12 15:39 | NUR ---
ARG RESULTS DOCUMENTED PO2 99 ON CPAP OF 13 PT PLACED ON VAPOTHERM 40L 100% FOR MEALS PT TOLERATING WELL. KATIA HIDALGO AT BEDSIDE.
--- NOTE | 2020-09-12 15:53 | NUR ---
PATIENT CALLS DAUGHTER IN LAW GAURI ON PHONE, BECOMES MORE SOB AND STARTS DESATING. PURSED LIP BREATHING ENCOURAGED, O2 SATS SLOWLY INCREASING.
--- NOTE | 2020-09-12 16:31 | NUR ---
PATIENT WAS ASSITED WITH FEEDING, SHE IS NOW FEEDING HERSELF. SPO2 ON VAPOTHERM IS 80%-85%. SHE WAS INSTRUCTED TO PERFORM PURSED LIP BREATHING IN BETWEEN BITES OF FOOD AND SIPS OF JUICE. HOB IN HIGH BOLAÑOS'S. WILL CONTINUE TO MONITOR.
--- NOTE | 2020-09-12 16:53 | NUR ---
patient able to takes bites of tomatoe, grapes, cantalope, drank 2 juices and water , had a pudding. rt in room.
--- NOTE | 2020-09-12 17:18 | NUR ---
danielle-care provided. new purewick placed, suction intact. tramadol given for back pain.
--- NOTE | 2020-09-12 17:38 | NUR ---
ZOSYN ANTIBIOTIC INFUSING NOW, INSULIN GIVEN PER BLOOD SUGAR. NEW IV BAG OF IV FLUIDS INFUSING. PATIENT TALKS ON THE PHONE AND STATS TO DESAT, IS INSTRUCTED EACH TIME TO DEEP BREATHE AND PURESED LIP BREATHING. PATIENT'S FAMILY WILL BE DROPPING OFF MASH POTATOES AND GRAVY TO PATIENT AT [facility].
--- NOTE | 2020-09-12 17:42 | NUR ---
RT IN ROOM TO PLACE PATIENT BACK ON BIPAP TO LET HER REST FROM VAPOTHERM AND O2 SATS 80%.
--- NOTE | 2020-09-12 17:47 | NUR ---
PT RETURNED TO BIPAP. PT IS ALERT SITTING IN BED ON PHONE. WILL GIVE BREAKS FROM BIPAP RN REQUEST.
--- NOTE | 2020-09-12 18:22 | NUR ---
DR HENDRIX CALLED HERE AND UPDATES GIVEN.
--- NOTE | 2020-09-12 19:30 | NUR ---
awakens easily. bipap cont. desats quickly when sips of water given. digital forensics examiner shows sinus rhythm pacs pvcs hr 88. #20 lac d5ns infusing @ 50cchr. landeros cath in place. urine cloudy yellow. fall & air/contact precautions cont. has poor general condition.
--- NOTE | 2020-09-12 22:10 | NUR ---
dr tafoya called this telegraphic typewriter mechanic. updated on pts condition.
[2020-09-13] VITALS (19 sets, daily range): BP systolic 98–170; BP diastolic 60–90
--- NOTE | 2020-09-13 00:01 | NUR ---
eyes closed. nad. bipap conts. hair or beauty salon assistant shows sinus rhythm hr 74.
--- NOTE | 2020-09-13 02:00 | NUR ---
resting quietly. resps even & unlabored. nad. braider tender shows sinus rhythm hr 66.
--- NOTE | 2020-09-13 04:00 | NUR ---
bipap cont. nad. teletypesetter monitor shows sinus rhythm hr 66.
--- NOTE | 2020-09-13 05:55 | NUR ---
lab here. blood drawn.
--- NOTE | 2020-09-13 07:10 | NUR ---
REPORT RECEIVED FROM EVAN WARD.
[2020-09-13 07:46] LABS: ALBUMIN 2.2 g/dL (3.2-5.0); ALKALINE PHOSPHATASE 166 u/l (38-126); ANION GAP 5 (6-22 (CALC)); BILIRUBIN, TOTAL 0.5 mg/dL (0.0-1.4); BUN 17 mg/dL (7-17); BUN/CREATININE RATIO 43 (12-20 (CALC)); CARBON DIOXIDE 39 mmol/l (22-30); CHLORIDE 100 mmol/l (95-108); CREATININE 0.4 mg/dL (0.5-1.0); GFR > 60 ML/MIN (>=60 (CALC)); GFR FOR AFR.AMER. > 60 ML/MIN (>=60 (CALC)); POTASSIUM 3.2 mmol/l (3.5-5.1); SGOT/AST 61 u/l (14-36); SODIUM 141 mmol/l (137-146); TOTAL PROTEIN 5.4 g/dL (6.3-8.2)
--- NOTE | 2020-09-13 07:50 | NUR ---
PT RESTING IN SEMI FOWLERS POSITION,A&O X3;VS OBTAINED AND ASSESSMENT COMPLETED;PT DENIES ANY CURRENT PAIN OR DISCOMFORTS,PAIN SCALE AND REPORTING EDUCATED;RESPIRATIONS SHALLOW ON BIPAP;ABDOMEN SOFT ON PALPATION AND ACTIVE IN ALL 4 QUADRANTS;CARMEN CATHETER PATENT DRAINING YELLOW URINE TO GRAVITY WITH EASE;WEAK PEDAL PULSES;SKIN INTACT;GENERALIZED EDEMA NOTED THROUGHOUT;#20G TO LAC INFUSING D5 NS @ 50ML/HR,SITE APPEARS HEALTHY;ACCUCHECK 204, PT TO BE COVERED WITH SLIDING SCALE INSULIN PER ORDER;PT DENIES ANY ADDITIONAL NEEDS AT THIS TIME AND IS ENCOURAGED TO CALL FOR ASSISTANCE IF NEEDED;FALL PRECAUTIONS IN PLACE WITH CALL LIGHT IN REACH;FREQUENT ROUNDS MADE.
--- NOTE | 2020-09-13 08:06 | NUR ---
BIPAP PLACED ON STANDBY. PLACED ON VAPTHERM.PT TOLERATING WELL.
--- NOTE | 2020-09-13 08:20 | NUR ---
AT BEDSIDE DISCUSSING POC.
--- NOTE | 2020-09-13 08:23 | NUR ---
BIPAP STANDBY. PLACED ON VAPOTHERM.
--- NOTE | 2020-09-13 10:00 | NUR ---
PT RESTING IN SEMI FOWLERS POSITION;RESPIRATIONS SHALLOW ON VAPOTHERM BUT PT TOLERATING WELL;PT DENIES ANY CURRENT PAIN OR DISCOMFORTS;CARDIAC MONITORING IN PLACE;ACCUCHECK 223, PT COVERED WITH SCHEDULED LEVEMIR;CARMEN CATHETER REMAINS PATENT AND DRAINING TO GRAVITY WITH EASE,IV LASIX ADMINISTERED PER ORDER;PT DENIES ANY ADDITIONAL NEEDS;CALL LIGHT IN REACH;FREQUENT ROUNDS MADE.
--- NOTE | 2020-09-13 11:30 | NUR ---
PT RESTING IN SEMI FOWLERS POSITION;RESPIRATIONS REMAIN SHALLOW ON VAPOTHERM WITH BIPAP ON STANDBY AND PT TOLERATING WELL;PT DENIES ANY CURRENT PAIN OR DISCOMFORTS;CARDIAC MONITORING IN PLACE;IV SITE PATENT INFUSING 20MEQ OF K PER ORDER, ABX TO BE ADMINISTERED;CARMEN CATHETER EMPTIED OF 900CC OF YELLOW URINE;ACCUCHECK 333, PT COVERED WITH SLIDING SCALE INSULIN PER ORDER;PT DENIES ANY CURRENT NEEDS AT THIS TIME;ENCOURAGED TO CALL FOR ASSISTANCE IF NEEDED;CALL LIGHT IN REACH;FREQUENT ROUNDS MADE.
--- NOTE | 2020-09-13 13:03 | NUR ---
PT RESTING IN SEMI FOWLERS POSITION;RESPIRATIONS REMAIN SHALLOW ON VAPOTHERM;PT REPORT GENERALIZED PAIN RATING 8/10 ON THE PAIN SCALE, PT MEDICATED WITH PRN DILAUDID 2MG PO AT THIS TIME;CARMEN CATHETER DRAINING TO GRAVITY WITH EASE;IV SITE PATENT;PT DENIES ANY ADDITIONAL NEEDS AT THIS TIME;CALL LIGHT IN REACH;FREQUENT ROUNDS MADE.
--- NOTE | 2020-09-13 15:01 | NUR ---
PT REQUESTING TO BE PLACED BACK ON BIPAP FOR A NAP. RT AT BEDSIDE.
--- NOTE | 2020-09-13 15:05 | NUR ---
PT REQUESTING MEDICATION FOR ANXIETY. PT MEDICATED WITH PRN ATIVAN 0.5MG IVP.
--- NOTE | 2020-09-13 15:11 | NUR ---
PT. REQUEST CPAP ON TO TAKE A NAP. VAPOTHERM STANDBY.
--- NOTE | 2020-09-13 17:50 | NUR ---
PT APPEARS TO BE SLEEPING IN SEMI FOWLERS POSITION,WAKES EASILY TO VERBAL STIMULI;RESPIRATIONS REMAIN SHALLOW ON BIPAP;PT DENIES ANY CURRENT PAIN OR DISCOMFORTS;CARDIAC MONITORING IN PLACE;IV SITE PATENT AND ABX STARTED AT THIS TIME;CARMEN CATHETER EMPTIED OF 900CC OF YELLOW URINE;ACCUCHECK 302, SLIDING SCALE INSULIN PROVIDED;PT ENCOURAGED TO CALL FOR ASSISTANCE IF NEEDED;CALL LIGHT IN REACH;FREQUENT ROUNDS MADE.
--- NOTE | 2020-09-13 20:00 | NUR ---
PT WITH EYES CLOSED, RESPONDS TO VERBAL STIMULI. REMAINS ON BI-PAP SA02 90% CALL GARCIA IN REACH.
--- NOTE | 2020-09-13 21:15 | NUR ---
PT REQUESTED TO COME OFF BI-PAP, RESP CALLED.
--- NOTE | 2020-09-13 21:22 | NUR ---
RESP AT BEDSIDE, PT REMOVED FROM BI-PAP, PLACED ON VAPO THERM NC PER PT REQUEST.
--- NOTE | 2020-09-13 21:31 | NUR ---
PT TALKING ON PHONE. CALL GARCIA IN REACH.
--- NOTE | 2020-09-13 22:00 | NUR ---
PT WITH VAPO THERM NC ON. TALKING ON PHONE. CALL GARCIA IN REACH.
--- NOTE | 2020-09-13 22:51 | NUR ---
PT AWAKE PLAYING ON COMPUTER. CALL GARCIA IN REACH.
--- NOTE | 2020-09-13 23:50 | NUR ---
PT REQUESTED A SANDWICH, PROVIDED PT'S FOOD.
[2020-09-14] VITALS (18 sets, daily range): BP systolic 86–156; BP diastolic 65–89
--- NOTE | 2020-09-14 | NUR ---
PT AWAKE AND ALERT, EATING SANDWICH. VAPOTHERM IN PLACE. CALL GARCIA IN REACH.
--- NOTE | 2020-09-14 01:40 | NUR ---
PT REQUESTED PAIN MED AND NAUSEA MED. MEDICATED PER MAR. REQUESTED TO BE PLACED BACK ON BI-PAP. RESP AT BEDSIDE, PLACED ON BI-PAP.
--- NOTE | 2020-09-14 04:00 | NUR ---
PT WITH EYES CLOSED, BI-PAP ON. 89% CALL GARCIA IN REACH.
--- NOTE | 2020-09-14 05:40 | NUR ---
PT PULLING AT BI-PAP, WANTS IT OFF. SA02 90% REMOVED MASK, APPLIED VAPOTHERM. RESP CALLED.
--- NOTE | 2020-09-14 07:13 | NUR ---
PT REPORT RECEIVED FROM ICT BUSINESS ANALYST, PT ALERT/ORIENTED, SITTING UP IN BED WATCHING TV AND TALKING ON PHONE.
--- NOTE | 2020-09-14 09:43 | NUR ---
PT SITTING UP IN BED, WATCHING TV, TALKING ON PHONE, VITAL SIGNS STABLE, PT ALERT/ORIENTED X3.
--- NOTE | 2020-09-14 14:46 | NUR ---
PT REQUESTING TO BE PLACED BACK ON VAPOTHERM SO SHE CAN EAT.
--- NOTE | 2020-09-14 17:20 | NUR ---
PT SITTING UP IN BED, TALKING ON PHONE, AND PLAYING GAMES ON COMPUTER, EATING NUTS AND FRUIT AT THIS TIME. NO SEVERE DISTRESS NOTED AT THIS TIME.
--- NOTE | 2020-09-14 19:00 | NUR ---
REPORT RECEIVED FROM Stacy LOUIE RN, CARE OF PT ASSUMED AT THIS TIME.
--- NOTE | 2020-09-14 19:25 | NUR ---
SP02 67% ON VAPOTHERM AT 40L/MIN 100% FIO2, ADVISED PT SHE NEEDS TO BE SWITCHED TO BIPAP. PT STATES "I'M WAITING FOR A PHONE CALL". ADVISED PT HER OXYGEN SATURATION IS LOW AND SHE NEEDS BIPAP SOON POSSIBLE. PT AGREES, DON HENRIQUEZ CALLED.
--- NOTE | 2020-09-14 19:27 | NUR ---
RECEIVED CALL FROM PT'S DAUGHTER, JAVIER. STATES SHE WOULD LIKE HER MOTHER TRANSFERRED TO [place] AND WOULD LIKE TO SPEAK TO THE DIRECTOR COMMUNITY CENTER. CALL PASSED TO Marifer BECKFORD RN, DIRECTOR COMMUNITY CENTER.
--- NOTE | 2020-09-14 19:36 | NUR ---
PT NOT ALLOWING RT TO APPLY BIPAP, PT REQUESTS TO SPEAK TO INVESTMENT ANALYST ABOUT TRANSFERRING TONIGHT INSTEAD.
--- NOTE | 2020-09-14 19:55 | NUR ---
PHONE CALL RECIEVED FROM DR. HENDRIX, UPDATED ON PTS STATUS AND PT AND DAUGHTERS WISH FOR TRANSFER. ORDERS RECIEVED TO CALL TRANSFER CENTER, STAT ABG AND PCXR, AND LASIX 40MG IV.
--- NOTE | 2020-09-14 20:08 | NUR ---
PT REQUESTS TO SWITCH BACK TO VAPOTHERM, EXPLAINED TO PT THAT HER SP02 IS 88% WITH BIPAP AND SHE NEEDS TO KEEP IT ON TO MAINTAIN HER OXYGENATION. EXPLAINED TO PT ABG IS PENDING SHORTLY, AND IT SHOULD BE TAKEN WHILE ON BIPAP.
--- NOTE | 2020-09-14 20:15 | NUR ---
X-RAY TECHS IN ROOM FOR PCXR.
--- NOTE | 2020-09-14 20:20 | NUR ---
DON RT IN ROOM FOR ABG, CALL RECEIVED FROM [id number] ASKING FOR UPDATES. UPDATE ON PT'S STATUS AND PLAN PROVIDED. ADVISED THAT PT IS NOT COMPLIANT WITH BIPAP AND KEEPS REQUESTING IT BE REMOVED. REQUESTED THAT FAMILY ENCOURAGE PT TO BE COMPLIANT WITH BIPAP.
--- NOTE | 2020-09-14 21:20 | NUR ---
BIPAP REMOVED AND REPLACED WITH VAPOTHERM SO PT CAN TAKE HER PO MEDICATIONS. SCHEDULED MEDICATIONS AND PRN DILAUDID ADMINISTERED PER PT'S REQUEST FOR C/O PAIN. PRN ATIVAN ADMINISTERED FOR PT'S ANXIETY/ TO HELP PT TOLERATE BIPAP. SEE E-MAR. PT DRANK A LARGE AMOUNT OF WATER QUICKLY WITH MEDS. PT HAS FRUIT BOWL PROVIDED BY FAMILY AT BEDSIDE TABLE. REQUESTS IT BE PLACED IN FRIDGE. EXPLAINED TO PT ITEMS COULD NOT BE TAKEN OUT OF ROOM AND RETURNED TO GENERAL AREAS FOR INFECTION CONTROL REASONS. PT STATES "GREAT ITS WASTED", PT'S FRUIT PUT IN BASIN AND COVERED IN ICE TO HELP MAINTAIN IT. PT DE-SATURATES QUICKLY INTO THE 60'S WITHOUT BIPAP. EXPLAINED TO PT THOUGH SHE DOESNT WANT BIPAP ON IT IS IMPORTANT SHE WEAR IT BECAUSE HER 02 IS VERY LOW AND HER CO2 IS VERY HIGH. BIPAP PLACED ON PT. FINGERSTICK GLUCOSE 115mg/Dl. 450ML CLEAR YELLOW URINE EMPTIED FROM CARMEN. PT PULLS ASIDE MASK AND MAKES PHONE CALL. PT OVERHEARD SAYING "YES I'M IN ICU, THE NURSE SMASHED A MASK IN MY FACE, SEND A DEPUTY." APPARENTLY TREASURER CAN NOT UNDERSTAND PT AND PT HANDS PHONE TO THE WEED CUTTER. SPOKE WITH MEDICATION NURSE AND EXPLAINED PT'S COMPLAINT IS THAT "NURSE SMASHED MASK ONTO FACE" AND THAT A DEPUTY IS NOT NEEDED. PT STATES "WHY ARE YOU LYING?" APOLOGIZED TO PT FOR ANY DISCOMFORT CAUSED AND OFFERED TO REDJUST MASK FOR COMFORT. PT DECLINES. OFFERED TO ASSIST PT TO TURN AND/OR REPOSITION FOR COMFORT. PT DECLINES. CALL GARCIA WITHIN REACH, ADVISED PT TO CALL PRN. PT MAKES CROSS SIGN WITH HER FINGERS AND DOES NOT MAKE EYE CONTACT/LOOKS AWAY.
--- NOTE | 2020-09-14 21:25 | NUR ---
CALL RECEIVED FROM SON ASKING ABOUT NURSE "SMASHING MASK ON MY MOMS FACE", EXPLAINED TO PT'S SON CPAP IS MAINTAINING RESPIRATORY STATUS AND IT IS IMPORTANT FOR SHE KEEP IT ON BUT SHE IS HAVING TROUBLE TOLERATING IT AND HAS A NEGATIVE PERCEPTION OF THE CPAP. ENCOURAGED SON TO ENCOURAGE PT TO WEAR CPAP IF HE SPEAKS TO HER AGAIN. PTS SON VERBALIZES UNDERSTANDING.
--- NOTE | 2020-09-14 21:35 | NUR ---
INITIATED CALL TO [facility]SF[facility]. WAS TOLD THEY WERE IN REPORT AND WILL CALL BACK.
--- NOTE | 2020-09-14 22:05 | NUR ---
JOEL CALL FROM LAURA AT [facility], DISCUSSED NEED FOR TRANSFER DUE TO RESPIRATORY FAILURE AND COVID 19 PNEUMONIA. AUTHORIZATION REQUIRED DUE TO BED CAPACITY. WILL CALL BACK.
--- NOTE | 2020-09-14 22:20 | NUR ---
CALL BACK FROM [facility]. PATIENT WAS DECLINED AT THIS TIME. FAMILY TO BE NOTIFIED.
--- NOTE | 2020-09-14 22:20 | NUR ---
PER Marifer BECKFORD RN, DAIRY MACHINE OPERATOR FARMWORKER, TRANSFER CENTER DECLINES AT THIS TIME. WILL CALL FAMILY AND MAKE THEM AWARE/PROVIDE UPDATES.
--- NOTE | 2020-09-14 22:28 | NUR ---
INFLAMMATORY MARKERS/ COVID LABS ORDERED FOR AM BY DR. HENDRIX.
--- NOTE | 2020-09-14 22:50 | NUR ---
SPOKE WITH DAUGHTER JAVIER REGARDING TRANSFER CENTER DECLINING TRANSFER TONIGHT. STATUS UPDATE PROVIDED.
--- NOTE | 2020-09-14 23:57 | NUR ---
MIDNIGHT ZOSYN ADMINISTERED BY Horacio PATTERSON LPN, 1200ML CLEAR YELLOW URINE EMPTIED FROM CARMEN FROM Horacio PATTERSON LPN. Horacio PATTERSON REMOVES BIPAP AND APPLIES VAPOTHERM TO ALLOW PT TO DRINK WATER. PT REFUSES RE-APPLICATION OF BIPAP AT THIS TIME. PT ADVISED HER SPO2 DROPS INTO THE 60S WITHOUT BIPAP AND CAN LEAD TO RESPIRATORY FAILURE AND POSSIBLE . PT STATES "WELL, NO ONE CARED BEFORE"
[2020-09-15] VITALS (21 sets, daily range): BP systolic 90–166; BP diastolic 52–89
--- NOTE | 2020-09-15 00:05 | NUR ---
SPO2 DROPS TO 30%, RT DON CALLED TO COME TO BEDSIDE, Dayna PEARCE APRN. CALLED REGARDING PT REFUSAL TO REAPPLY BIPAP AND SUBSEQUENT HYPOXIA. Sarah CARBAJAL RN IN ROOM TRYING TO GET PT TO ALLOW BIPAP REAPPLIED. PT AGREES AND Sarah CARBAJAL RN RE-APPLIES BIPAP.
--- NOTE | 2020-09-15 00:13 | NUR ---
ORDER RECEIVED FOR ONE TIME DOSE MORPHINE TO RESPIRATORY DISTRESS FROM Stacy DRAKE.
--- NOTE | 2020-09-15 00:26 | NUR ---
DR. HENDRIX CALLS FOR UPDATE ON PT'S RESPIRATORY STATUS. BIPAP ON, SPO2 82%. ORDER IS TO D/C MORPHINE AND ADMINISTER 1MG DILAUDID IV.
--- NOTE | 2020-09-15 00:54 | NUR ---
one time dose of dilaudid given as per order. spo2 91% at this time.
--- NOTE | 2020-09-15 01:25 | NUR ---
PT RESTING IN BED, CALM, NO APPARENT DISTRESS OR DISCOMFORT. CPAP MASK SECURED, SPO2 93% ON FIO2 100%. NSR 70S, NIBP 109/63mmHg. RR 18. CALL GARCIA REMIANS WITHIN REACH.
--- NOTE | 2020-09-15 02:15 | NUR ---
PT RESTING IN BED WITH EYES CLOSED, APPEARS TO BE SLEEPING, REPIRATIONS REGULAR AND EVEN, CALM, NO APPARENT DISTRESS OR DISCOMFORT. CPAP MASK SECURED, SPO2 94-95% ON FIO2 100%. NSR 70S, NIBP 105/55mmHg. RR 18. CALL GARCIA REMIANS WITHIN REACH.
--- NOTE | 2020-09-15 03:05 | NUR ---
DR. HENDRIX UPDATED ON PT'S STATUS.
--- NOTE | 2020-09-15 03:20 | NUR ---
Stacy PEARCE APRN UPDATED ON PT'S STATUS.
--- NOTE | 2020-09-15 05:05 | NUR ---
PT AWAKE, REQUESTING CPAP REMOVED. ADVISED PT CPAP CANNOT BE REMOVED AND VAPOTHERM IS NO LONGER A VIABLE OPTION FOR HER AT THIS TIME. PT BEGINS SCREAMING AND PULLING AT CPAP. SPO2 RAPIDLY DROPS TO 60%. ATTEMPT TO CALM PT WITH VERBAL CUES, ADVISED PT TO PLEASE KEEP CPAP AND ANESTHESIOLOGY CRNA WOULD CONTACT HER PROVIDER TO ASK FOR A REPEAT DOSE OF DILAUDID. PT CALMS DOWN AT THIS POINT. SPOKE WITH Stacy PEARCE APRN ABOUT CHANGE IN STATUS. ORDER RECEIVED FOR DILAUDID 1MG IV X1.
--- NOTE | 2020-09-15 05:36 | NUR ---
100 ML DARK YELLOW URIN WITH SEDIMENT EMPTIED FROM CARMEN.
--- NOTE | 2020-09-15 05:50 | NUR ---
SP02 95%. PT APPEARS TO BE SLEEPING COMFORTABLY, EYES CLOSED, RESPIRATIONS REGULAR AND UNLABORED, NO APPARENT DISTRESS. CALL GARCIA REMAINS WITHIN REACH.
[2020-09-15 06:15] LABS: HEMATOCRIT 39.1 % (37.0-47.0); HEMOGLOBIN 11.8 g/dl (12.0-16.0); IMMATURE GRANULOCYTES 0.7 % (0.0-5.0); MEAN CELL VOLUME 85.7 fL CALC (80.0-100.0); MEAN CORPUSCULAR HGB 25.9 pG CALC (26.0-32.0); MEAN CORPUSCULAR HGB CONC 30.2 g/dL CAL (32.0-36.0); NEUT# 14.53 thou/uL (2.00-7.15); RED BLOOD COUNT 4.56 mill/uL (4.20-5.60); RED CELL DISTRI WIDTH 14.1 % (11.5-15.5)
[2020-09-15 06:35] LABS: ALBUMIN 2.2 g/dL (3.2-5.0); ALKALINE PHOSPHATASE 155 u/l (38-126); BILIRUBIN, TOTAL 0.6 mg/dL (0.0-1.4); BUN 19 mg/dL (7-17); BUN/CREATININE RATIO 35 (12-20 (CALC)); C-REACTIVE PROTEIN 6.3 mg/dL (0-0.9); CHLORIDE 94 mmol/l (95-108); CREATININE 0.5 mg/dL (0.5-1.0); GFR > 60 ML/MIN (>=60 (CALC)); GFR FOR AFR.AMER. > 60 ML/MIN (>=60 (CALC)); POTASSIUM 3.5 mmol/l (3.5-5.1); SGOT/AST 66 u/l (14-36); SODIUM 139 mmol/l (137-146); TOTAL PROTEIN 5.3 g/dL (6.3-8.2)
--- NOTE | 2020-09-15 06:45 | NUR ---
REPORT RECEIVED FROM ANNETTE MONTALVO. CARE ASSUMED.
--- NOTE | 2020-09-15 07:15 | NUR ---
PT RESTING IN BED AWAKE ON BIPAP. PT PULLING ON BIPAP. EXPLAINED NEED FOR BIPAP. PT STATES THAT SHE DOES NOT WANT TO WEAR IT. EXPLAINED THAT HER OXYGEN IS LOW AND SHE NEEDS TO KEEP IT ON. EXPLAINED THAT IF HER OXYGEN DROPS SHE MAY REQUIRE INTUBATION. PT VERBALIZED UNDERSTANDING. SHIFT ASSESSMENT COMPLETED AT THIS TIME. IV PATENT X1. CALL LIGHT IN REACH. WILL CONTINUE TO MONITOR.
[2020-09-15 07:16] LABS: ANION GAP 6 (6-22 (CALC))
[2020-09-15 07:17] LABS: CARBON DIOXIDE 43 mmol/l (22-30)
--- NOTE | 2020-09-15 07:58 | NUR ---
PHONED [facility] TRANSFER [facility] SPOKE WITH COLTON. COLTON STATES THAT THERE ARE NO ICU BEDS FOR COVID POSITIVE PTS.
--- NOTE | 2020-09-15 08:05 | NUR ---
PHONED PATIENT FAMILY TO LET THEM KNOW THAT [facility] IS FULL FOR ICU COVID POSITIVE PTS. THEY WISH FOR PT TO BE TRANSFERRED TO [facility].
--- NOTE | 2020-09-15 08:25 | NUR ---
RT AT BEDSIDE FOR STAT ABG
--- NOTE | 2020-09-15 08:32 | NUR ---
DAUGHTER IN LAW GAURI PHONED AND ASKED FOR UPDATE. UPDATE PROVIDED.
--- NOTE | 2020-09-15 08:33 | NUR ---
DR HENDRIX NOTIFIED OF ABG RESULTS.
--- NOTE | 2020-09-15 08:37 | NUR ---
RT AT BEDSIDE TO PLACE PT IN BIPAP MODE INSTEAD OF CPAP MODE AT THIS TIME.
--- NOTE | 2020-09-15 08:43 | NUR ---
ABG COMPLETED. CRITICAL VALUE REPORTED TO DR. HENDRIX BY KATIA YEE. PT PLACED IN BIPAP 16/05 BY RT KIAN. NO DISTRESS AT THIS TIME.
--- NOTE | 2020-09-15 09:53 | NUR ---
PHONED [facility] TRANSFER [facility] SPOKE WITH SHANE TO INITIATE TRANSFER.
--- NOTE | 2020-09-15 10:00 | NUR ---
PT RESTING IN BED COMFORTABLY ON BIPAP AT THIS TIME. VSS ON MONITOR. RESP ARE EVEN AND UNLABORED. NO DISTRESS NOTED. CALL LIGHT IN REACH. WILL CONTINUE TO MONITOR.
--- NOTE | 2020-09-15 10:30 | NUR ---
DR HENDRIX NOTIFIED OF SEDIMENT IN URINE AND BLOOD NOTED. ORDERS RECIEVED FOR A UA. CARMEN TUBBING AND BAG CHANGED AT THIS TIME. EMPTIED 300CC OF URINE WITH SEDIMENT AND BLOOD. NEW CARMEN TUBING AND BAG PLACED AT THIS TIME
--- NOTE | 2020-09-15 11:00 | NUR ---
DAUGHTER IN LAW ON UNIT. UPDATE PROVIDED. DAUGHTER IN LAW PLACED OUTSIDE OF PT DOOR TO SEE PATIENT. ALL QUESTIONS AND CONCERNS ANSWERED. DAUGHTER IN LAW REQUESTED THAT PT BE WOKEN UP FROM SLEEP SO THAT THE PATIENT WOULD KNOW THAT SHE WAS HERE TO VISIT. THIS NURSE WENT INTO ROOM WITH PPE AND WOKE PT UP. PT PROVIDED SIPS OF DRINK AT THIS TIME WELL. DAUGHTER IN LAW THEN CONCERNED WHEN PATIENT WILL BE ABLE TO EAT EXPLAINED THAT PATIENT NEEDS TO BE ABLE TO TOLERATE BEING OFF OF BIPAP WITH A SUSTAINED O2 AND WOULD THEN NEED TO BE ABLE TO STAY OFF OF BIPAP FOR AT LEAST 30 MINS POST FEED DUE TO RISK FOR ASPIRATION. SHE VERBALIZED UNDERSTANDING.
--- NOTE | 2020-09-15 11:40 | NUR ---
PT DEMANDING TO HAVE BIPAP TAKEN OFF AT THIS TIME. THIS NURSE INTO ROOM TO EXPLAINED THAT IT IS NOT A GOOD IDEA TO TAKE BIPAP OFF. PT CONTINUES TO DEMAND AND STATES THAT SHE IS HUNGRY AND WANTS FOOD SHE DOES NOT WANT TO BE ON THE BIPAP ANYMORE. REMOVED BIPAP. PLACED PT ON VAPOTHERM 100% FIO2 AT 40L IN LESS THAN 30 SECONDS PT DESATTED TO 69%. IMMEADIATELY PLACED BIPAP ON PATIENT AND PT DESATTED TO 46% WHILE PLACING BIPAP ON. EXPLAINED THAT THIS IS WHY WE ARE NOT TAKING THE BIPAP OFF. IT IS IMPORTANT FOR OXYGEN PERFUSION AND VITAL ORGANS THAT SHE STAYS ON THE BIPAP.
--- NOTE | 2020-09-15 11:49 | NUR ---
RT AT BEDSIDE FOR REPEAT ABG
--- NOTE | 2020-09-15 12:02 | NUR ---
REPEATED ABG AFTER BIPAP CHANGES. RECORDED RESULTS. PT REMAINS ON BIPAP AT THIS TIME. KATIA DYSON.
--- NOTE | 2020-09-15 12:04 | NUR ---
DR HENDRIX NOTIFIED OF NO BM SINCE 09/02. NEW ORDERS RECEIVED FOR SUPPOSITORY. DR HENDRIX NOTIFIED OF REPEAT ABG RESULTS WELL.
--- NOTE | 2020-09-15 12:22 | NUR ---
PHONED [facility] SPOKE WITH [facility] NURSING SUPERVISION. THEY HAVE NO [facility] ICU BEDS AVAILABLE.
--- NOTE | 2020-09-15 13:15 | NUR ---
MULTIPLE ATTEMPTS MADE TO OBTAIN NEW IV ACCESS WERE UNSUCCESSFUL. COMPLETE BED BATH GIVEN. CARMEN CARE PROVIDED. PT BECAME NAUSEATED AND WAS REMOVED FROM BIPAP PLACED ON VAPOTHERM. PT DESATTED WAS PROVIDED ZOFRAN. ONCE NAUSEA SUBSIDED IMMEADIATELY PLACED ON BIPAP. PLACED AQUACEL TO COCCYX DUE TO SHEARING NOTED. ASSISTED PT UP TO RECLINER AT BEDSIDE.
--- NOTE | 2020-09-15 13:50 | NUR ---
PHONED [facility] TRANSFER [facility] AT [phone]. INFOR PROVIDED.
--- NOTE | 2020-09-15 13:57 | NUR ---
DR HENDRIX SPEAKING WITH DAUGHTER DOMI ASTORGA TO DISCUSS TRANSFER
[2020-09-15 14:17] LABS: URINE BILIRUBIN - DIPSTICK NEGATIVE (NEGATIVE); URINE BLOOD DIPSTICK LARGE (NEGATIVE); URINE COLOR YELLOW; URINE GLUCOSE - DIPSTICK NEGATIVE (NEGATIVE); URINE KETONE NEGATIVE (NEGATIVE); URINE LEUK ESTERASE TRACE (Negative); URINE NITRITE - DIPSTICK NEGATIVE (Negative); URINE PROTEIN - DIPSTICK TRACE mg/dL (NEG-TRACE); URINE UROBILINOGEN - DIPSTICK 0.2 E.U./dL (0.2)
[2020-09-15 14:20] LABS: URINE BACTERIA FEW hpf; URINE CLARITY HAZY; URINE EPITHELIAL CELLS FEW EPI/hpf (0-FEW); URINE WBC 0-2 WBC/hpf (0-5)
--- NOTE | 2020-09-15 15:11 | NUR ---
PATIENT SITS ON RECLINER. IS DROWSY. ATTEMPTED TO PLACE NEW IV, UNSUCCESSFUL. IV SOLUMEDROL GIVEN, D 5 1/2 NS NOW INFUSING. PATIENT REQUESTED WATER, WAS ABLE TO TAKE 2 SIPS AND DESATED TO 49%. PLACED IMMEDIATELY ON BACK ON BIPAP 100%. SLOWLY INCREASES TO 91%. WILL CONTINUE TO MONITOR.
--- NOTE | 2020-09-15 16:07 | NUR ---
PATIENT WAS ASSITED TO BSC X2 DETECTIVE SERGEANT, PATIENT IS SIGNIFICANTLY WEAK. HAD A SMALL SOFT BROWN BM. REQUESTE TO GO TO BED, NOW LAYS WIN BED WITH HOB 30 DEGREES, PILLOW PLACED ON HER RIGHT SIDE. CALL LIGHT WITHIN REACH. O2 SAT 90%.
--- NOTE | 2020-09-15 17:54 | NUR ---
COVID RESPIRATORY PANEL PCR ORDERED. PATIENT ABLE TO TOLERATE SWAB.
--- NOTE | 2020-09-15 18:09 | NUR ---
PATIENT LAYS WITH HOB 30 DEGREES. RESTS WITH EYES CLOSED. NO ACUTE DISTRESS SHOWN. CALL LIGHT WITHIN REACH. ON BIPAP, O2 SAT 92%.
--- NOTE | 2020-09-15 19:45 | NUR ---
drowsy. answers yes & no questions by nodding head. asked pt if she felt better. pt shakes head no. bipap cont. remains in high fowlers position. customer service rep shows sinus rhythm pacs pvcs hr 80. #20 lac d51/2ns infusing @ 50cchr. refused po fluids. landeros cath in place. urine cloudy yellow. general condition appears worse tonight. requires total care for all needs. fall & air/contact precautions cont.
--- NOTE | 2020-09-15 20:00 | NUR ---
[id number] bipap alarm sounding. pt removed bipap. pulse ox shows 53%. pt yelling "help me. i can't breathe." bipap replaced. ativan 0.5mg ivp given. pulse ox increased to 92%. pt calmed down & returned to sleep.
--- NOTE | 2020-09-15 22:00 | NUR ---
eyes closed. bipap cont. technical staff assistant shows sinus rhythm hr 86.
[2020-09-16] VITALS (35 sets, daily range): BP systolic 75–167; BP diastolic 48–96
--- NOTE | 2020-09-16 00:01 | NUR ---
pt pulled bipap off. pulse ox 82%. bipap replaced. pulse ox increased to 91%.
--- NOTE | 2020-09-16 02:00 | NUR ---
resting quietly. bipap cont. nad. rn cardiac rehab shows sinus rhythm hr 86.
--- NOTE | 2020-09-16 04:30 | NUR ---
7300-1229 bipap alarm sounding. bipap off. pulse ox 79%. bipap replaced. pulse ox increased to 91%.
--- NOTE | 2020-09-16 04:30 | NUR ---
[id number] pt yelling out "i can't do this, i can't do this." pt referring to bipap mask. instructed pt about need for bipap or possible intubation. mask reapplied.
--- NOTE | 2020-09-16 04:45 | NUR ---
ativan 0.5mg ivp given.
--- NOTE | 2020-09-16 05:00 | NUR ---
lab here. blood drawn.
[2020-09-16 05:48] LABS: HEMATOCRIT 39.6 % (37.0-47.0); HEMOGLOBIN 12.5 g/dl (12.0-16.0); IMMATURE GRANULOCYTES 0.5 % (0.0-5.0); MEAN CELL VOLUME 83.5 fL CALC (80.0-100.0); MEAN CORPUSCULAR HGB 26.4 pG CALC (26.0-32.0); MEAN CORPUSCULAR HGB CONC 31.6 g/dL CAL (32.0-36.0); NEUT# 13.64 thou/uL (2.00-7.15); RED BLOOD COUNT 4.74 mill/uL (4.20-5.60); RED CELL DISTRI WIDTH 13.7 % (11.5-15.5)
--- NOTE | 2020-09-16 05:58 | NUR ---
eyes closed @ present. nad. bipap cont.
[2020-09-16 06:04] LABS: ALBUMIN 2.4 g/dL (3.2-5.0); ALKALINE PHOSPHATASE 155 u/l (38-126); ANION GAP 10 (6-22 (CALC)); BUN 17 mg/dL (7-17); BUN/CREATININE RATIO 43 (12-20 (CALC)); CARBON DIOXIDE 38 mmol/l (22-30); CHLORIDE 96 mmol/l (95-108); CREATININE 0.4 mg/dL (0.5-1.0); GFR > 60 ML/MIN (>=60 (CALC)); GFR FOR AFR.AMER. > 60 ML/MIN (>=60 (CALC)); POTASSIUM 3.3 mmol/l (3.5-5.1); SGOT/AST 55 u/l (14-36); SODIUM 140 mmol/l (137-146); TOTAL PROTEIN 5.6 g/dL (6.3-8.2)
[2020-09-16 06:37] LABS: C-REACTIVE PROTEIN 15.1 mg/dL (0-0.9)
--- NOTE | 2020-09-16 07:10 | NUR ---
PATIENT IS DROWSY, FOLLOWS SOME DIRECTIONS. NURSE ASSESSMENT PERFORMED, ON BIPAP WITH 100% FIO2. LAC 20 G IV INTACT, IV FLUIDS INFUSING PROPERLY. CARMEN CATHETER INTACT, URINE IS CLEAR/YELLOW. SR ON TELEMETRY. GENERALIZED SWELLING PRESENT UE, LE AND FACE. CALL LIGHT WITHIN REACH.
--- NOTE | 2020-09-16 07:41 | NUR ---
APRESOLINE IV PRN GIVEN FOR BP 167/96 MMHG. WILL CONTINUE TO MONITOR.
--- NOTE | 2020-09-16 07:45 | NUR ---
PATIENT PULLS OFF BIPAP MASK OFF, YELLS, "HELP." I ASKED HER WHAT I COULD HELP HER WITH AND SHE WOULD NOT RESPOND, SHE WOULD SWINGS HER ARMS. DESATED TO 42%, TIRED OUT AND I PLACED BIPAP MASK IMMEDIATELY BACK ON. 0753: I CALLED DAUGHTER IN LAW JU TO NOTIFY OF CURRENT SITUATION AND HOW IT IS NOT GOOD FOR TO CONTINUE LIKE THIS, AND LET HER KNOW SHE WILL HAVE TO GET INTUBATED. 0755: GAURI REQUESTS TO TALK TO PATIENT, SHE CALLED PATIENT'S CELLPHONE, I PUT IT ON SPEAKER PHONE. 0805: SPOKE TO DAUGHTER CHI WANG AGAIN AND ASKED IF PATIENT'S WAS AVAILABLE FOR CONSENT. I ALSO LET HER KNOW I WILL NOTIFY DOCTOR AND WILL LET HER KNOW OF POC.
--- NOTE | 2020-09-16 08:25 | NUR ---
PATIENT CONTINUES TO PULL ON BIPAP, BIPAP MASK READJUSTED, RESPIRATION RATE 32, PATIENT IS RESTLESS. NEEDS VERBAL CUEING.
--- NOTE | 2020-09-16 08:37 | NUR ---
PATIENT IS CALMER, RESPIRATION RATE 25, O2 SAT 88% ON BIPAP. HEART RATE 80'S-90'S.
--- NOTE | 2020-09-16 09:40 | NUR ---
RECEIVED PERMISSION FROM NAKIA, RANGER AIDE TO HAVE DAUGHTER JAVIER BROOKE TO COME AND SEE HER MOTHER.
--- NOTE | 2020-09-16 10:19 | NUR ---
[id number]: PATIENT'S DAUGHTER JAVIER UP HERE TO SEE PATIENT, SHE DID SIGN THE WAIVER. PATIENT WAS ABLE TO WAVE AT HER DAUGHTER A FEW TIMES, WAS ABLE TO TURN HER HEAD AND LOOK AT HER DAUGHTER. DAUGHTER GIVEN A BLACK CELLPHONE, RODRIGUEZ CELLPHONE AND BLACK LAPTOP, WITH 2 PHONE CHARGERS AND A LAPTOP TREASURER SAVINGS BANK. ALL CLEANED AND PLACED IN A BELONGING BAG. DAUGHTER WAS EXPLAINED DOCTOR HAS DECIDED TO INTUBATE, WAS EXPLAINED IT WILL HELP HER MOTHER.
--- NOTE | 2020-09-16 10:49 | NUR ---
DAUGHTER IN LAW CALLED HERE FOR UPDATES. UPDATES GIVEN
--- NOTE | 2020-09-16 11:37 | NUR ---
SPOKE WITH [facility] AND PT WAS DECLINED DUE TO POSSIBILITY OF NEEDING ECHMO.
--- NOTE | 2020-09-16 12:03 | NUR ---
SPOKE WITH [facility] CASSI. ALL INFORMATION PROVIDED. FAXED THE REQUESTED INFOR TO NURSING DATA ANALYST REPORT WRITER AT [facility] AT [phone].
--- NOTE | 2020-09-16 12:05 | NUR ---
PATIENT BP 109/60 MMHG, ON PROPOFOL 5 MCG/KG/MIN WILL TITRATE PER PROTOCOL. 94% ON VENTILTOR. SR 76BPM ON TELEMETRY.
--- NOTE | 2020-09-16 12:45 | NUR ---
CASSI FROM [facility] CALLED WITH ACCEPTANCE AND BED NUMBER. ALEJANDRO ACCEPTED AT 1241. PT WILL GO TO ICU BED 13 NUMBER FOR REPORT IS [phone].
--- NOTE | 2020-09-16 12:53 | NUR ---
[facility] PHONED FOR TRANSPORT SPOKE WITH [facility]. ETA IS 30MINS
--- NOTE | 2020-09-16 12:54 | NUR ---
SPOKE TO DAUGHTER IN LAW GAURI AND UPDATED, NOTIFIED SHE WILL BE TRANSFERRING AND GOING TO ICU BED 13, SHE UNDERSTANDS AND AGREES.
--- NOTE | 2020-09-16 13:15 | NUR ---
1120: VERBAL ORDER FOR INTUBATION BY DR MARTINEZ. 1122: ANESTHESIA WAS PAGED. 1130: RT AT BEDSIDE. 1138: ANESTHESIA AT BEDSIDE. 1140: 150 MG OF DIPRIVAN GIVEN ON LAC. 140 MG OF SUCCYNICHOLINE GIVEN ON LAC 1143: PATIENT WAS INTUBATED ET SIZE 7.5 AND 21 AT THE LIP. POSITIVE CO2 AND POSITIVE BILATERAL LS 1150: R-NARE NG TUBE PLACED, VERIFIED WITH AUSCULTAION, NS 1000 ML INFUSING NOW BOLUS. 1152: DR MARTINEZ ORDERS GIVEN FOR LEVOPHED DRIP IF PATIENT BECOMES HYPOTENSIVE. 1200: BILATERAL WRIST RESTRAINTS APPLIED, SOFT, ORDER OBTAINED BY DR MARTINEZ.
--- NOTE | 2020-09-16 13:20 | NUR ---
[facility] IS HERE, ALL NECESSARY PAPEWORK PROIDED. SBAR GIVEN.
--- NOTE | 2020-09-16 14:00 | NUR ---
ASSITED TO TRANSFER PATIENT TO [facility], ALL IV INFUSIONS TRANSFERRED, ALL PATIENT BELONGINGS IN BAG.
--- NOTE | 2020-09-16 14:23 | NUR ---
REPORT CALLED TO HALI AT [facility] ICU, SBAR GIVEN. PROVIDED DAUGHTER IN LAW [facility] PHONE NUMBER AND PROVIDED NUMBER FOR ICU HERE IF NEEDS TO CALL.
--- NOTE | 2020-09-16 14:26 | NUR ---
CALLED DAUGHTER IN LAW GAURI FOR UPDATES AND PHONE NUMBER GIVEN FOR ICU AT [facility].
== END 2020-09-16 14:06 | DRG 208 ==
LOC: ED 00:06 → ED-I 01:15 → ED 01:19 → MS2 01:20 → ICU 09-04 08:20
PROVIDERS: Family Medicine; Internal Medicine; Nurse Practitioner; Nurse Practitioner Family; Physician Assistant; ADMIT Internal Medicine; ATTEND Internal Medicine
PROC: XW033E5 Introduction of Remdesivir Anti-infective into Peripheral Vein, Percutaneous Approach, New Technology Group 5 (ICD-10-PCS; principal; 2020-09-02)
PROC: 0T9B70Z Drainage of Bladder with Drainage Device, Via Natural or Artificial Opening (ICD-10-PCS; 2020-09-06)
PROC: 5A09557 Assistance with Respiratory Ventilation, Greater than 96 Consecutive Hours, Continuous Positive Airway Pressure (ICD-10-PCS; 2020-09-07)
PROC: 5A1935Z Respiratory Ventilation, Less than 24 Consecutive Hours (ICD-10-PCS; 2020-09-16)
PROC: 0BH17EZ Insertion of Endotracheal Airway into Trachea, Via Natural or Artificial Opening (ICD-10-PCS; 2020-09-16)
DX: U07.1 COVID-19 (principal); J12.89 Other viral pneumonia; J96.01 Acute respiratory failure with hypoxia; E11.649 Type 2 diabetes mellitus with hypoglycemia without coma; I25.10 Atherosclerotic heart disease of native coronary artery without angina pectoris; I10 Essential (primary) hypertension; E78.5 Hyperlipidemia, unspecified; E78.00 Pure hypercholesterolemia, unspecified; G89.4 Chronic pain syndrome; F41.9 Anxiety disorder, unspecified; F17.290 Nicotine dependence, other tobacco product, uncomplicated; Z79.82 Long term (current) use of aspirin; Z79.899 Other long term (current) drug therapy; Z88.5 Allergy status to narcotic agent; Z88.8 Allergy status to other drugs, medicaments and biological substances; Z95.1 Presence of aortocoronary bypass graft
CPT/HCPCS: J1650; J2060